=== PATIENT | male | born 1950 | race Caucasian/White ===

== ENCOUNTER → 2017-11-25 | Outpatient (CLI) | payer OTHER, MEDICARE ==
[~2017-11-25] MED LIST: ASPIR 8181 M1 PO; CENTRUM SILVER1 EAC2 PO; CHERATUSSIN AC10 ML PO; COLACE100 MG PO; EYEDROP; FISH OIL 1,0001 EAC5 PO; FISH OIL 1,001000 M2 PO; FLEXERIL PO; HYDROCODON-ACE1 EAC7 PO; HYDROCODON-ACE1 EACH PO; IBUPROFEN 600600 M1 PO; LEVAQUIN 500 M500 M2 PO; LEVAQUIN 500 M500 MG PO; LISINOPRIL10 MG PO; LODINE XL400 MG PO; LODINE XL500 MG PO; MAXZIDE-25 MG1 EACH PO; MINOCIN100 MG PO; MIRALAX17 GM PO; MULTIVITAMINS1 EAC7 PO; NEURONTIN 300300 M1 PO; NORCO 10-325 T1 EACH PO; NORCO 5-325 TA1 EACH PO; OCUVITE LUTEIN1 EAC2 PO; PREDNISONE50 MG PO; PREVACID15 MG; PROTONIX40 M2 PO; VENTOLIN HFA 1818 GM INH; VITCB500GO; ZYRTEC10 M4 PO; [UNRECOGNIZED DRUG - REMARK]
--- NOTE | 2017-11-26 08:24 | PAINCON ---
[facility] [address] [place] [address] PAIN MANAGEMENT CONSULTATION Name: GAGESUZY [facility] [id number] Admission: 11/25/17 Attend Phys: Francheska Diggs Discharge: Date of : 50 Report #: [id number] THIS REPORT FOR: //name// CC: Cesar Browning DATE OF SERVICE: 11/25/2017 HISTORY OF PRESENT ILLNESS: The patient is a pleasant 67-year-old gentleman, last seen in the pain clinic on 09/02/2017. He has ongoing cervical radiculopathy, axial back pain, requires complex medication management. He takes hydrocodone 10/325 typically less than 1 a day, 100 tablets, last September, lasted him nearly 3 months. He stopped gabapentin due to lack of efficacy. He does take Flexeril 10 mg prescribed t.i.d., takes it b.i.d. We had spoken at last visit about the BEERS recommendation not to use Flexeril long-term in patients over 60. However, the patient has done well with his current medication. I see no reason to change therapy at this point. We can rotate to another muscle relaxant if needed. Returns to pain clinic today noting pain is primarily in the upper neck, right side, base of the occiput. He rates the pain as 7 on a VAS. At this point, no significant radicular symptoms noted. Cervical range of motion in flexion and extension is preserved. PHYSICAL EXAMINATION: GENERAL: Shows an obese 67-year-old gentleman, 5 feet 9 inches, 313 pounds, BMI is 46.1 kilograms per meter squared. VITAL SIGNS: Blood pressure is elevated at 173/96, pulse 83, respirations 16. MUSCULOSKELETAL: As noted. Cervical range of motion is good. Point tenderness inferior aspect of the right occiput, though cervical range of motion appears adequate. Upper extremity strength is preserved. ASSESSMENT: Myofascial pain, component of cervical spondylosis, prior history of cervical radiculopathy in a gentleman with prior history of axial back pain requiring complex medication management. RECOMMENDATION: Again, discussion with the patient today about therapeutic options, we have elected to renew hydrocodone 10/325, dispense 100 tablets; directions, one tablet 3-4 times a day, though this typically will last for the patient up to 3 months. We have elected to continue Flexeril 10 mg b.i.d., [place]i.[place] [address] PAIN MANAGEMENT CONSULTATION Name: SUZY ALMONTE Room: [facility]#: [id number] Admission: 11/25/17 Attend Phys: Francheska Diggs Discharge: Date of : 50 Report #: [id number] liberty of writing prescription for same. Follow up likely at about 3 months or earlier if needed for interventional therapy. <ELECTRONICALLY SIGNED> By: Miquel Browning DO 11/26/17 0824 1419 0020Miquel Browning DO /nt
== END ==
LOC: M.PC 01:29
DX: M54.12 Radiculopathy, cervical region (principal); M54.9 Dorsalgia, unspecified; M79.1 Myalgia; Z79.899 Other long term (current) drug therapy

== ENCOUNTER → 2018-03-10 | Outpatient (CLI) | payer OTHER, MEDICARE ==
--- NOTE | 2018-03-15 06:53 | PAINCON ---
[facility] [address] [place] [address] PAIN MANAGEMENT CONSULTATION Name: SUZY ALMONTE [facility] [id number] Admission: 03/10/18 Attend Phys: Francheska Diggs Discharge: Date of : 50 Report #: [id number] THIS REPORT FOR: //name// CC: Cesar Browning The patient is a 68-year-old gentleman being treated for cervical radiculopathy, axial back pain requiring complex medication management. Last seen in pain clinic 11/25/2017. He used hydrocodone infrequently, prescription for hydrocodone 10/325, limit 100 tablets was generated at that time. He is just now getting near the end of that prescription (100 tablets in 3.5 months). Returns to pain clinic today, noting primarily pain is low back pain, exacerbated with physical activity including lawn mowing. When asked if it impacts his function, he notes that "he simply does not let pain stop him." He does note that pain is in the low back, radiates up to the mid back with activity. He notes if he sits for only a few minutes, it does enable him to "recycle." By this he means that it does help relieve pain and very quickly he can go back to his "baseline." He does take coanalgesics including Flexeril 10 mg up to b.i.d. for spasm and etodolac 500 mg b.i.d. for prostaglandin mediated pain and inflammation. Last visit, we had spent a good deal of time reviewing the fact that the BEERS recommendations are that cyclobenzaprine not be used chronically for muscle spasm, particularly in the elderly. Given, however, that the patient has taken this agent (cyclobenzaprine 10 mg) b.i.d. for spasm for quite some time, he has done very well with it. I felt it was reasonable to simply review this issue with the patient and continue him on the agent until such time he may develop any issues with daytime somnolence or dry mouth or urinary retention. Likewise, we did discuss in broad terms the generic risk of nonsteroidal anti-inflammatory agents, chronic use and increased cardiac risk (etodolac 500 mg b.i.d.). We reviewed the fact that opiate medications are being used to provide analgesia adequate to support activities of daily living, not attempting to achieve a specific pain score on the 0-10 Visual Analog Scale. The current opiate medications are providing sufficient analgesia to allow the patient to participate in activities of daily living. The patient is not exhibiting any aberrant behavior suggestive of drug diversion. The patient is not having any adverse reactions to medications. The patient is not suffering from daytime somnolence or mental acuity changes. The patient is managing opiate-induced constipation with appropriate vcrq-gbi-xycmuis agents and dietary considerations. The patient was counseled on concern for caution with operating a motor vehicle while using opiate medications. A physical exam was performed and the patient's functional status was evaluated. All patients with back pain were advised against the bed rest greater than 4 days and were advised to return to normal activities. Pain score assessment was [facility] [address] [place] [address] PAIN MANAGEMENT CONSULTATION Name: SUZY ALMONTE [facility] [id number] Admission: 03/10/18 Attend Phys: Francheska Diggs Discharge: Date of : 50 Report #: [id number] noted and the treatment plan was reviewed with the patient. All current medications, both prescribed and OTC were reviewed and reconciled on the electronic medical record. Tobacco screening was accomplished and smoking cessation was advised when indicated. BMI was noted and diet/exercise modification was recommended for all patients following outside normal parameters. I reviewed with the patient today their responsibilities to safeguard prescription medications, reviewed their responsibility to utilize medications only as prescribed by the physician. They are to seek and receive pain medications only from 1 physician group ( [facility]). They are to use 1 pharmacy and keep the clinic informed if they change pharmacies. Their responsibilities include making followup visits in a timely fashion and to avoid abrupt discontinuation of medication usage. Their responsibilities further include bringing their medications (bottles from the pharmacy with residual pills) to the visit for possible confirmation of pill counts and the patient understands it is their responsibility to submit to random drug screens to ensure both that the medications prescribed are present, and that no other controlled substances are present. All prescriptions provided today were generated electronically. Physical exam otherwise shows a pleasant 68-year-old gentleman, BMI is elevated at 45.2 kilograms per meter squared. Blood pressure is little bit elevated as well at 169/91, pulse is 78, respirations 18. Cranial nerves 2-12 are grossly intact. Pupils are equal and reactive to light and accommodation. Extraocular muscles are intact. Lower extremity strength is preserved. Rises from chair using armrest, has a little tenderness across the low back, though no discrete trigger points are noted. Gait is tandem. Lower extremity strength is preserved. Straight leg raise is negative. Medication list was reconciled today. Does take a little Prevacid and has Ventolin p.r.n. inhaler. Otherwise 12-point review of systems is noncontributory and he enjoys reasonably good health. Today, I did review an opiate consent to treat contract with the patient. While he does not take an opiate daily, he does take a schedule 2 narcotic with some frequency. Again, I did renew hydrocodone 10/ prescription with the patient today, limit 100 tablets. I did renew his cyclobenzaprine and etodolac both 30 days with 2 refills. Follow up simply on an as needed basis. Discharged in good and stable condition. We did spend greater than 25 minutes today reviewing multiple issues including the opiate consent to treat contract and the patient's responsibilities and rights, [place] [address] PAIN MANAGEMENT CONSULTATION Name: SUZY ALMONTE Room: [facility]#: [id number] Admission: 03/10/18 Attend Phys: Francheska Diggs Discharge: Date of : 50 Report #: [id number] cyclobenzaprine and NSAID type agents. We did discuss opiate risks with hydrocodone use. Discharged in good and stable condition. <ELECTRONICALLY SIGNED> By: Miquel Browning DO 03/15/18 0653 [id number] 0112Miquel Browning DO /nt
== END ==
LOC: M.PC 01:41
DX: M54.12 Radiculopathy, cervical region (principal); G89.29 Other chronic pain; Z79.899 Other long term (current) drug therapy

== ENCOUNTER → 2018-04-19 | Outpatient (CLI) | payer OTHER, MEDICARE ==
--- NOTE | 2018-04-19 17:01 | 2DMMODE ---
[place] [address] 2 D/M-MODE ECHOCARDIOGRAM Name: GAGESUZY MEDINA Room: [facility].#: [id number] Admission: 04/19/18 Attend Phys: Miquel Hoff Discharge: Date of : 50 Date of Service: 04/19/18 1701 Report #: [id number] THIS REPORT FOR: //name// APPROVED REPORT Study performed: 04/19/2018 15:28:07 EXAM: Comprehensive 2D, Doppler, and color-flow Echocardiogram Patient Location: Out-Patient Status: routine BSA: 2.48 HR: 90 bpm Other Information Study Quality: Fair Indications Cardiomegaly 2D Dimensions LVEF(%): 63.96 (>50%) IVSd: 11.14 (7-11mm) LVOT Diam: 22.09 (18-24mm) LVDd: 60.19 mm PWd: 11.70 (7-11mm) Ascending Ao: 30.86 (22-36mm) LVDs: 38.86 (25-40mm) Aortic Root: 28.63 mm Diaz's LVEF: 63.96 % Volumes Left Atrial Volume (Systole) LA ESV Index: 15.20 mL/m2 Aortic Valve AoV Peak Will.: 0.96 m/s AO Peak Gr.: 3.68 mmHg LVOT Max P.98 mmHg AO Mean Gr.: 2.14 mmHg LVOT Mean P.92 mmHg LVOT Max V: 1.00 m/s AO V2 VTI: 16.28 cm LVOT Mean V: 0.64 m/s YVONNE (VTI): 3.94 cm2 LVOT V1 VTI: 16.71 cm Mitral Valve E/A Ratio: 0.84 MV Decel. Time: 296.29 [place] [address] 2 D/M-MODE ECHOCARDIOGRAM Name: SUZY ALMONTE Room: [facility]#: [id number] Admission: 04/19/18 Attend Phys: Miquel Hoff Discharge: Date of : 50 Date of Service: 04/19/18 1701 Report #: [id number] MV E Max Will.: 0.46 m/s MV PHT: 85.92 ms MVA (PHT): 2.56 cm2 TDI E/Lateral E': 5.11 E/Medial E': 7.67 Medial E' Will.: 0.06 m/s Lateral E' Will.: 0.09 m/s Pulmonary Valve PV Peak Will.: 0.98 m/s PV Peak Gr.: 3.87 mmHg Left Ventricle The left ventricle is normal size. There is normal LV segmental wall motion. Mild concentric left ventricular hypertrophy. Left ventricular systolic function is normal. The left ventricular ejection fraction is within the normal range. LVEF is 50-55%. Grade I - abnormal relaxation pattern. Right Ventricle The right ventricle is normal size. The right ventricular systolic function is normal. Atria The left atrium size is normal. The right atrium size is normal. Aortic Valve Mild aortic valve sclerosis. Mild aortic regurgitation. There is no aortic valvular stenosis. Mitral Valve The mitral valve is normal in structure. There is no mitral valve regurgitation noted. No evidence of mitral valve stenosis. Tricuspid Valve The tricuspid valve is normal in structure. There is no tricuspid valve regurgitation noted. Pulmonic Valve The pulmonary valve is normal in structure. There is no pulmonic valvular regurgitation. Great Vessels The aortic root is normal in size. IVC is normal in size and collapses with >50% [place] [address] 2 D/M-MODE ECHOCARDIOGRAM Name: SUZY ALMONTE [facility] [id number] Admission: 04/19/18 Attend Phys: Miquel Hoff Discharge: Date of : 50 Date of Service: 04/19/18 1701 Report #: [id number] Pericardium There is no pericardial effusion. <Conclusion> The left ventricle is normal size. Mild concentric left ventricular hypertrophy. Left ventricular systolic function is normal. The left ventricular ejection fraction is within the normal range. LVEF is 50-55%. Grade I - abnormal relaxation pattern. The left atrium size is normal. Mild aortic valve sclerosis. Mild aortic regurgitation. There is no aortic valvular stenosis. The mitral valve is normal in structure. The tricuspid valve is normal in structure. IVC is normal in size and collapses with >50% inspiration There is no pericardial effusion. There is normal LV segmental wall motion. <ELECTRONICALLY SIGNED> By: Edin Vilchis MD, [facility] 04/19/181700 00 00 Edin Vilchis MD, FACC /INF
== END ==
LOC: M.CRD 15:00
DX: I35.1 Nonrheumatic aortic (valve) insufficiency (principal); I51.7 Cardiomegaly

== ENCOUNTER 2018-05-09 19:31 | Inpatient (IN) | payer OTHER, MEDICARE ==
[~2018-05-09] VITALS: Ht 177.8 cm; Wt 145.1 kg
[~2018-05-09 19:31] MED LIST changes: -ASPIR 8181 M1 PO; -CENTRUM SILVER1 EAC2 PO; -COLACE100 MG PO; -EYEDROP; -FISH OIL 1,001000 M2 PO; -LISINOPRIL10 MG PO; -MAXZIDE-25 MG1 EACH PO; -MINOCIN100 MG PO; -MIRALAX17 GM PO; -OCUVITE LUTEIN1 EAC2 PO; -ZYRTEC10 M4 PO
[2018-05-09 19:37] VITALS: BP 162/92
[2018-05-09] MEDS ORDERED: MAXZIDE-25 MG1 EACH PO (19:43)
[2018-05-09] MEDS ORDERED: EYEDROP (19:43)
[2018-05-09] MEDS ORDERED: CENTRUM SILVER1 EAC2 PO (19:43)
[2018-05-09] MEDS ORDERED: ZYRTEC10 M4 PO (19:44)
[2018-05-09] MEDS ORDERED: ASPIR 8181 M1 PO (19:44)
[2018-05-09] MEDS ORDERED: FISH OIL 1,001000 M2 PO (19:44)
[2018-05-09 20:19] LABS: HEMOGLOBIN 15.8 gm/dL (14.0-18.0); MCHC 33.3 g/dL (28.0-37.0); MPV 7.8 fl. (7.2-11.1); WBC 10.6 thou/uL (4.0-11.0)
[2018-05-09 20:21] LABS: ABSOLUTE LYMPHOCYTES 1.4 thou/uL (0.8-5.3); ABSOLUTE MONOCYTES 0.7 thou/uL (0.0-1.2); ABSOLUTE NEUTROPHILS 8.5 thou/uL (1.6-8.1); BASOPHILS 0.4 %; EOSINOPHILS 0.2 %; HEMATOCRIT 47.5 % (42.0-52.0); LYMPHOCYTES 12.8 %; MCH 32.6 pg (26.0-34.0); MCV 97.7 fL (80.0-100.0); NUCLEATED RBCS 0 /100WBC; PLATELET COUNT* 180 thou/uL (150-400); POLYS 79.6 %; RBC 4.86 mil/uL (4.50-6.00); RDW-CV 13.7 % (10.5-14.5)
[2018-05-09 20:24] LABS: CALCIUM 9.2 mg/dL (8.5-10.1); CREATININE 1.2 mg/dL (0.6-1.3); POTASSIUM 4.8 mmol/L (3.5-5.1)
[2018-05-09 20:25] LABS: PROTIME 10.1 Seconds (9.20-11.50)
[2018-05-09 20:34] LABS: ALBUMIN 3.6 g/dL (3.4-5.0); TOTAL BILIRUBIN 0.5 mg/dL (<0.1-1.0); TOTAL PROTEIN 7.7 g/dL (6.4-8.2)
[2018-05-09 23:29] VITALS: BP 140/75
[2018-05-10] MEDS ORDERED: OCUVITE LUTEIN1 EAC2 PO (00:29)
[2018-05-10] MEDS ORDERED: NORCO 10-325 T1 EACH PO (00:30)
[2018-05-10] MEDS ORDERED: VENTOLIN HFA 1818 GM INH (00:31)
[2018-05-10 04:00] VITALS: BP 114/74
[2018-05-10 08:03] VITALS: BP 137/77
[2018-05-10] MEDS ORDERED: COLACE100 MG PO (08:13)
[2018-05-10 11:59] VITALS: BP 168/69
[2018-05-10 16:00] VITALS: BP 161/73
[2018-05-10 20:00] VITALS: BP 145/69
[2018-05-11] VITALS: BP 114/69
[2018-05-11 04:00] VITALS: BP 140/79
[2018-05-11 08:00] VITALS: BP 164/76
[2018-05-11 20:00] VITALS: BP 131/67
[2018-05-12] VITALS: BP 167/78
[2018-05-12 04:00] VITALS: BP 142/71
[2018-05-12 08:05] VITALS: BP 146/81
--- NOTE | 2018-05-12 12:24 | CON ---
[address] [address] CONSULTATION Name: GAGESUZY Room: [place] [address] ADM IN M.R.#: [id number] Admission: 05/09/18 Attend Phys: Umang Naik MD Discharge: Date of : 50 Report #: [id number] THIS REPORT FOR: //name// CC: Umang Hoff DATE OF SERVICE: 05/11/2018 ATTENDING PHYSICIAN: Umang Naik M.D. REASON FOR EVALUATION: Right lower extremity inflammatory eruption, likely cellulitis with a hemolytic component. HISTORY OF PRESENT ILLNESS: Chart examined, patient examined. This is a 68-year-old with a history of hypertension, apparently he has had lower extremities edema, suspect chronic venous stasis insufficiency, who without apparent injury developed inflammatory eruption involving his right lower extremity. He had extended pain into the groin area noted, made it difficult to ambulate due to the severity of the pain. He was not generally feeling ill. Denies any fevers. No pulmonary or gastrointestinal related complaints. He notes he has had previous history of cellulitis in left lower extremity. He is on his feet quite a bit at work. He does have compression stockings, although he wears them not consistently. He was empirically started on vancomycin. Overall, he is somewhat better. ALLERGIES: LISTED TO PENICILLINS, HE SAYS. CURRENT MEDICATIONS: Include aspirin, loratadine, fish oil, triamterene, multivitamin, pantoprazole, docusate sodium, etodolac, levofloxacin, ipratropium/albuterol inhaler, vancomycin, hydrocodone. PAST MEDICAL HISTORY: As noted above, he has had previous knee surgery on the left, spinal stenosis, hypertension, and history of osteoarthritis. SOCIAL HISTORY: Former smoker, extended 40 pack years. FAMILY HISTORY: Noncontributory. REVIEW OF SYSTEMS: As above. PHYSICAL EXAMINATION: GENERAL: He is pleasant, alert, and cooperative. He is in mild distress. He is obese. VITAL SIGNS: Temperature 98.5, pulse 93, respirations 18, blood pressure 164/76. SKIN: Warm, dry[place] [address] CONSULTATION Name: SUZY ALMONTE Room: [address] IN [facility]#: [id number] Admission: 05/09/18 Attend Phys: Umang Naik MD Discharge: Date of : 50 Report #: [id number] HEENT: Unremarkable. NECK: Supple. LUNGS: Somewhat diminished, otherwise clear breath sounds. HEART: Regular. I do not appreciate a murmur. ABDOMEN: Obese, soft, nontender. There are no peritoneal signs. EXTREMITIES: Right lower extremity, he has an hemorrhagic appearance to the leg. It is fairly significantly swollen, there is no pitting. It is mildly tender to palpation, especially posteriorly. There are no bullous lesions, no ulcerations. GENITOURINARY: Deferred. RECTAL: Deferred. LABORATORY DATA: Blood cultures sterile thus far. Lactic acid 1.6, is down from 2.2. Venous Doppler was unremarkable. CBC: White count of 10.6, H and H 15.8 and 47.5, platelets of 180. Electrolytes: Sodium 136, potassium 4.8, chloride 100, bicarbonate is 33, BUN and creatinine 21 and 1.2, glucose of 116. LFTs unremarkable. Albumin 3.6. Total protein 7.7, estimated GFR of 60. PT of 10.1, INR 1.0. ASSESSMENT: Right lower extremity inflammatory eruption, suspect multifactorial in terms of recently complicating skin and soft tissue infection with cellulitis, suspect gram-positive, perhaps streptococcus. We will start on therapy, for penicillin allergy, add compression and continue elevation, suspect he will need only additional 24 hours of parenteral therapy. <ELECTRONICALLY SIGNED> By: Ruel Laughlin MD 05/12/18 1224 1117 1712Jobarbi Laughlin MD /nt
[2018-05-12 13:38] VITALS: BP 146/81
[2018-05-12] MEDS ORDERED: MIRALAX17 GM PO (14:14)
[2018-05-12] MEDS ORDERED: MINOCIN100 MG PO (14:14)
[2018-07-29] MEDS ORDERED: FLEXERIL PO (10:29)
[2018-07-29] MEDS ORDERED: LODINE XL500 MG PO ×2 (10:29→14:11)
[2018-07-29] MEDS ORDERED: LISINOPRIL10 MG PO (13:55)
[2018-07-29] MEDS ORDERED: NORCO 10-325 T1 EACH PO ×2 (14:11→14:33)
[2018-09-14] MEDS ORDERED: NORCO 10-325 T1 EACH PO (15:21)
== END 2018-05-12 14:40 | disposition home or self-care (01) | DRG 603 ==
LOC: M.ERS 19:31 → M.TBA-ER 21:34 → M.2W 21:34
PROVIDERS: Emergency Medicine; ADMIT Internal Medicine
DX: L03.115 Cellulitis of right lower limb (principal); J96.10 Chronic respiratory failure, unspecified whether with hypoxia or hypercapnia; Z68.42 Body mass index [BMI] 45.0-49.9, adult; M19.90 Unspecified osteoarthritis, unspecified site; E66.01 Morbid (severe) obesity due to excess calories; M48.00 Spinal stenosis, site unspecified; I10 Essential (primary) hypertension; K21.9 Gastro-esophageal reflux disease without esophagitis; Z88.0 Allergy status to penicillin; Z91.040 Latex allergy status; Z87.891 Personal history of nicotine dependence; Z79.2 Long term (current) use of antibiotics; Z79.82 Long term (current) use of aspirin

== ENCOUNTER → 2018-07-29 | Outpatient (CLI) | payer OTHER, MEDICARE ==
[~2018-07-29] MED LIST changes: +ASPIR 8181 M1 PO; +CENTRUM SILVER1 EAC2 PO; +COLACE100 MG PO; +EYEDROP; +FISH OIL 1,001000 M2 PO; +LISINOPRIL10 MG PO; +MAXZIDE-25 MG1 EACH PO; +MINOCIN100 MG PO; +MIRALAX17 GM PO; +OCUVITE LUTEIN1 EAC2 PO; +ZYRTEC10 M4 PO
--- NOTE | 2018-08-16 10:00 | PAINCON ---
[address] [address] PAIN MANAGEMENT CONSULTATION Name: SUZY ALMONTE [facility]: [facility]#: [id number] Admission: 07/29/18 Attend Phys: Binta Bennett MD Discharge: Date of : 50 Report #: [id number] THIS REPORT FOR: //name// CC: Cesar Hoff DO DATE OF SERVICE: 07/29/2018 PSYCHIATRIC CONSULTATION NOTE CHIEF COMPLAINT: Neck pain, low back pain. FOLLOWUP HISTORY: The patient is a 68-year-old gentleman who has been followed in the pain clinic by Dr. Miquel Browning. This is my first visit with the patient. He returns today indicating that he is having some pain and discomfort in his neck as well as in his low back area. Notes that the pain in the low back area radiates down into his hips. Feels that the neck pain is problematic too, but not as bad as it had been. Rates his pain as a 0/10 today. Does note exacerbation of the discomfort with activity with changes in the temperature when it becomes more cold, standing can be problematic. He feels that his medications as well as with rest are beneficial. He continues to find Etodolac helpful. He is not having any problem with this nonsteroidal anti-inflammatory medication on his stomach. Feels that hydrocodone 10/325 mg can be helpful as well. The patient has been cutting them in half. Overall, he feels that his pain with his current medical regimen is about 50% better than it had been without it. The patient has been placed upon this complex medical regimen secondary to his chronic pain by Dr. Browning. He usually takes a limited number of these pills and limited number of hydrocodone tablets. He notes that the use of 100 tablets had lasted him about 3-1/2 months. The patient states that he tries to remain active. Continues to do activities of daily living in spite of his discomfort. ALLERGIES: PENICILLIN, ADHESIVE, MUSHROOMS. MEDICATIONS: Albuterol 2 puffs p.r.n., aspirin 81 mg, Zyrtec 10 mg, fish oil 1000 mg, Colace 100 mg, constipation, Etodolac 500 mg b.i.d., hydrocodone 10/325 mg one p.o. p.r.n. pain q.4-6 hours, Prevacid 15 mg, lisinopril 10 mg, Centrum Silver, MiraLax, stool softener, Maxzide 25 mg to remove excess fluid. PAST MEDICAL HISTORY: Osteoarthritis involving the knees, spinal stenosis, hypertension. PAST SURGICAL HISTORY: Surgery x 2, 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 REVIEW OF SYSTEMS: Generally good health as per HPI. LABORATORY DATA: No new laboratory values are available at the time of our interview. PAIN CLINIC ASSESSMENT/PQRS: 1. The patient does have osteoarthritic changes involving his left knee. He has not been treated for rheumatoid arthritis. 2. Height 5 feet 9 inches, weight approximately 300 pounds, BMI is 46. 3. Vital Signs: Blood pressure 143/75, heart rate is 84, respiratory rate 16, room air saturation 94%, temperature 98.3. 4. Pain score 0/10. 5. Fall risk. The patient has not fallen in the last 3 months. 6. Blood thinner. The patient is not on a blood thinning medication. 7. Hypertension. The patient is not being treated for hypertension. 8. Opioid greater than 6 weeks. The patient is receiving opioid medications through 1 source the pain clinic. 9. Risk assessment tool, low for use of opioid medications. 10. Functional assessment tool. 11. Recreational drug use. The patient denies use of recreational drug use. 12. Tobacco: The patient stopped about 3 years ago. Smoked 1 pack a day for 50 years. 11. 13. 13. Alcohol occasionally drinks a beer. PHYSICAL EXAMINATION: GENERAL: The patient is a well-developed, well-nourished white male, slightly obese, appears his stated age. He is alert and oriented x 3. Affect is appropriate. Speech is fluent. HEENT: Normocephalic, atraumatic. Extraocular eye muscles intact. The patient does have some redness in the left eye. States that he has had cataract surgery recently. NECK: Without adenopathy or JVD. Upper extremity muscle strength is judged to be 5/5 for the major muscle groups in the upper extremity. Has some pain and discomfort in his neck. He is able to move his neck through good range of motion without significant problems are without cervical radicular discomfort at this point. MUSCULOSKELETAL: Without significant scoliosis, kyphosis or lordosis. The patient has pain and discomfort in lower portion of his back with pain is radiating down into his hips bilaterally. LUNGS: Clear to auscultation. ABDOMEN: Protuberant. Bowel sounds present. Lower extremity muscle strength is judged to be 5-/5 for the major muscle groups in the lower extremity. He has some left and right paraspinus muscle tenderness in the L4-L5 area. IMPRESSION: [facility] [address] [place] [address] PAIN MANAGEMENT CONSULTATION Name: GAGESUZY Room: [facility]#: [id number] Admission: 07/29/18 Attend Phys: Binta Bennett MD Discharge: Date of : 50 Report #: [id number] 1. History of cervical radiculopathy, stable at this juncture. Axial back pain requiring complex medical management. 2. Osteoarthritis involving the knees. 3. Spinal stenosis. 4. Hypertension. RECOMMENDATIONS: We discussed treatment options with the patient. At this juncture, we will continue with his current medical regimen. He feels that use of hydrocodone remains helpful. A script for 100 tablets has been written. He found that was sufficient for about 3 months. He will follow up in the pain clinic as needed in the future. We would like to thank you for letting us participate in his care. We hope he continues to improve. <ELECTRONICALLY SIGNED> By: Binta Bennett MD 08/16/18 [id number] [id number]. Tom Bennett MD /PMT
== END ==
LOC: M.PC 04:57
DX: M54.12 Radiculopathy, cervical region (principal); M17.0 Bilateral primary osteoarthritis of knee; M48.02 Spinal stenosis, cervical region; I10 Essential (primary) hypertension; Z79.899 Other long term (current) drug therapy

== ENCOUNTER → 2019-03-01 | Outpatient (CLI) | payer OTHER, MEDICARE ==
--- NOTE | ~2019-03-01 | PAINCON ---
[address] [address] PAIN MANAGEMENT CONSULTATION Name: SUZY ALMONTE Room: [facility] MASSIMO QuinonezPippa#: [id number] Admission: 03/01/19 Attend Phys: Binta Bennett MD Discharge: Date of : 50 Report #: [id number] THIS REPORT FOR: //name// CC: Cesar Wang DATE OF SERVICE: 03/01/2019 CHIEF COMPLAINT: Low back pain and some numbness in my left arm. HISTORY: The patient is a 69-year-old gentleman who has been followed in the pain clinic because of chronic pain involving his low back and down into his hips. He also has some neck problems. He rates his pain today as a 1-2 for the lower back. Has noted some increased pain in his left shoulder. Notes that when he is driving if he extends his arm. There is some numbness and tingling associated with that. He feels that it is somewhat problematic. It goes away once he stops that activity. He sometimes rests his arm on a pillow that decreases his discomfort as well. He has been treated over the years with a complex medical management using opioid medications to help control this pain. States that when he was younger, he did play football. He has left knee pain. Has had a knee replacement. Feels that the pain in his low back is helped with medication. The pain and numbness in his left shoulder is problematic. He has taken Medrol Dosepak in the past, but does not feel like he would like to go that option at this juncture. His pain becomes more problematic. He will return to the pain clinic with consideration of a cervical epidural steroid injection. ALLERGIES: PENICILLIN, ADHESIVE TAPE, MUSHROOMS. MEDICATIONS: Albuterol 2 puffs, aspirin 81 mg, Zyrtec 10 mg, fish oil 1000 mg, Colace 100 mg, etodolac 500 mg b.i.d., hydrocodone 10/325 one p.o. every 4-6 hours p.r.n., Prevacid 15 mg, lisinopril 10 mg, Centrum Silver, MiraLax, stool softener, Maxzide 25 mg for removal of excess fluid. PAIN CLINIC ASSESSMENT/PQRS: 1. The patient has some arthritic changes involving his left knee. This has been replaced. He is not being treated for rheumatoid arthritis. 2. Height 5 feet 9 inches, weight 320 pounds, BMI is 47.7. 3. Blood pressure 156/76, heart rate 91, respiratory rate 16, room air saturation 92%, temperature 98.3. 4. Pain intensity 0-2 depending on his level of activity. Pretty much 0 when he is not doing anything. 5. Fall history. The patient has not fallen in the last 3 months. 6. Blood thinner. The patient is not on a blood thinning medication. 7. Hypertension. The patient is [place] [address] PAIN MANAGEMENT CONSULTATION Name: SUZY ALMONTE Room: [facility]#: [id number] Admission: 03/01/19 Attend Phys: Binta Bennett MD Discharge: Date of : 50 Report #: [id number] 8. Opioids greater than 6 weeks. The [facility]. 9. Risk assessment tool, no for opioid use. 10. Functional assessment tool. 11. Recreational drug use. The patient denies use of recreational drugs. 12. Tobacco: The patient stopped about 3 years ago. Smoked 1 pack of cigarettes per day, has smoked for 50 years. 13. Alcohol. The patient occasionally drinks a beer. PHYSICAL EXAMINATION: GENERAL: The patient is a well-developed, well-nourished, somewhat obese white male, appears stated age. He is alert and oriented x 3. Affect is appropriate. Speech is fluent. HEENT: Normocephalic, atraumatic. Extraocular eye muscles intact. Sclerae nonicteric. Mucous membranes moist. NECK: Without adenopathy or JVD. The patient does have some pain and discomfort, which radiates down into his left arm. Notes that with certain activities such as extending his arm forward when he is driving and other activities where he extends his arm, he notes some numbness and tingling down from his neck, shoulder, arm and to his forearm down into his fingers. At this juncture, he feels that is a bit of discomfort. MUSCULOSKELETAL: The patient without significant scoliosis, kyphosis or lordosis. LUNGS: Clear to auscultation. ABDOMEN: Protuberant. Bowel sounds present. The patient has some pain and discomfort in the low back area in the L4-L5 dermatomal distribution. ASSESSMENT AND PLAN: 1. History of cervical radiculopathy with axial back pain requiring complex medical management. 2. Osteoarthritis involving the knees. 3. Spinal stenosis. 4. Hypertension. RECOMMENDATIONS: We discussed treatment options with the patient. At this juncture, he feels that his arm continues to be problematic on occasion. At this point, he declined the use of a Medrol Dosepak. He states he has used this in the past. If his pain continues to be problematic, he will return to the pain clinic at which time we would then consider a cervical epidural steroid injection. He will continue with his medications. A script for given him for medications, etodolac 1 p.o. b.i.d., hydrocodone 10/325 one p.o. q. 4 hours, [place] [address] PAIN MANAGEMENT CONSULTATION Name: SUZY ALMONTE Room: [facility]#: [id number] Admission: 03/01/19 Attend Phys: Binta Bennett MD Discharge: Date of : 50 Report #: [id number] total of 75 tablets have been administered. We would like to thank you for letting us participate in his care. We hope he continues to improve. By: [id number]. Tom Bennett MD /nt
== END ==
LOC: M.PC 04:53
DX: G89.29 Other chronic pain (principal); M54.12 Radiculopathy, cervical region; I10 Essential (primary) hypertension; Z88.0 Allergy status to penicillin; Z91.09 Other allergy status, other than to drugs and biological substances; Z91.018 Allergy to other foods; Z79.899 Other long term (current) drug therapy; Z96.652 Presence of left artificial knee joint; Z87.891 Personal history of nicotine dependence; Z79.891 Long term (current) use of opiate analgesic

== ENCOUNTER → 2019-05-17 | Outpatient (CLI) | payer OTHER, MEDICARE ==
--- NOTE | ~2019-05-17 | PAINCON ---
[address] [address] PAIN MANAGEMENT CONSULTATION Name: SUZY ALMONTE Room: [facility] MASSIMO QuinonezPippa#: [id number] Admission: 05/17/19 Attend Phys: Binta Bennett MD Discharge: Date of : 50 Report #: [id number] THIS REPORT FOR: //name// CC: Cesar Bennett DATE OF SERVICE: 05/17/2019 CHIEF COMPLAINT: "My neck pain has gotten worse and I would like to have an injection. HISTORY: The patient is a 69-year-old gentleman who has been followed in the pain clinic because of chronic pain. He has pain involving his low back and also has pain in the neck area. He states that he is having more pain involving his neck. Extension of his left arm and other activities of daily living with his left arm are more problematic. Notes some increased discomfort in the left arm with numbness and tingling down into his fingers. He has had cervical epidural steroid injections in the distant past. They were beneficial. He has returned today with the hope of undergoing another cervical epidural steroid injection. He is also having pain in his low back. He has had pain, which becomes quite overbearing. Notes that when he went to [facility] or when he went to [place] [facility]. He was unable to walk after about 3 days. He then got an electric cart which he rolled around, which made things significantly better. He notes that the pain wakes him up in the morning at 4:00 a.m. He notes the pain is worse when he is driving. Again, he would like to proceed today with a cervical epidural steroid injection to help decrease the pain, which he has been experiencing. Continues to find his opioid medications are beneficial and would like to have them renewed today as well. ALLERGIES: PENICILLIN, ADHESIVES, MUSHROOMS. CURRENT MEDICATIONS: Albuterol 2 puffs p.r.n., aspirin 81 mg, Zyrtec 10 mg, fish oil 1000 mg, Colace 100 mg, etodolac 500 mg b.i.d., hydrocodone 10/325 one p.o. 4-6 hours, Prevacid 15 mg, lisinopril 10 mg, Centrum Silver, MiraLax, Maxzide 25 mg for removal of excess fluid. PAIN CLINIC ASSESSMENT/PQRS: 1. The patient has some arthritic changes involving his left knee. This has been replaced. He is not being treated by Rheumatology. 2. Height 5 feet 10 inches, weight 321 pounds, BMI is 46.2. 3. VITAL SIGNS: Blood pressure 174/78, heart rate 77, respiratory rate 18, room air saturation is 94%, temperature 97.5. 4. Pain intensity 8/10. 5. Fall history: The patient has not fallen in the last 3 [place] [address] PAIN MANAGEMENT CONSULTATION Name: SUZY ALMONTE [id number] Admission: 05/17/19 Attend Phys: Binta Bennett MD Discharge: Date of : 50 Report #: [id number] 6. Blood thinner. The patient is not on a blood thinning medication. 7. Hypertension. The patient has been treated for hypertension. 8. Opioid greater than 6 weeks. The patient [facility]. 9. Risk assessment tool, low for opioid use. 10. Functional assessment tool. 11. Recreational drug use. The patient denies. 12. Tobacco: The patient denies. 13. Alcohol: The patient rarely drinks alcoholic beverages. PHYSICAL EXAMINATION: GENERAL: The patient is a well-developed, well-nourished, somewhat obese white male, appears his stated age. He is alert and oriented x 3. His affect is appropriate. Speech is fluent. HEENT: Normocephalic, atraumatic. Extraocular eye muscles are intact. Sclerae nonicteric. Mucous membranes are moist. NECK: Without adenopathy or JVD. The patient does complain of some pain in the left shoulder area with pain that is radiating down into his left arm with numbness and tingling in the fingers. HEART: Regular rate. LUNGS: Clear to auscultation. ABDOMEN: Protuberant. Bowel sounds present. EXTREMITIES: Upper extremity muscle strength judged to be 5-/5 on the right and 5-/5 on the left. Lower extremity, the patient complains of some low back pain. Has history, which clinically sounds consistent with spinal stenosis. ASSESSMENT AND PLAN: 1. History of cervical radiculopathy. The patient is requesting cervical epidural steroid injection. 2. Axial back pain requiring complex medical management and hand. 3. Spinal stenosis. 4. Hypertension. 5. Osteoarthritis involving the knees. RECOMMENDATION: We discussed treatment options with the patient. Today, we will proceed with a cervical epidural steroid injection. Risks and benefits of the procedure were discussed. They include but are not limited to infection, worsening pain, no improvement in pain, nerve damage, spinal headache and the patient elects to proceed. PROCEDURE NOTE: The patient was taken to the procedure area. He was then assisted in getting on the examination table. A pillow was placed under his shoulders. The patient's neck was sterilely prepped with a Betadine solution. Fluoroscopy using anterior, posterior as well as lateral viewing were implemented. A 25-gauge needle was then used to numb up the skin at this C7-T1 interspace. A 17-gauge Tuohy with loss of resistance technique [place] [address] PAIN MANAGEMENT CONSULTATION Name: SUZY ALMONTE Room: [facility]#: [id number] Admission: 05/17/19 Attend Phys: Binta Bennett MD Discharge: Date of : 50 Report #: [id number] gain access to the epidural space. There was no CSF, heme or paresthesia. A total of 120 mg triamcinolone was injected. The patient tolerated the procedure well. A script for his medications has been renewed. The patient will continue with the hydrocodone 10/325 one p.o. 4-6 hours and etodolac 500 mg 1 p.o. b.i.d. He will call us if he has any concerns. He states that he will return in the future to undergo an epidural steroid injection to help with the spinal stenosis symptoms. We would like to thank you for letting us participate in his care. We hope he continues to improve. By: [id number]. Tom Bennett MD /nt
== END | disposition home or self-care (01) ==
LOC: M.PC 05:14
DX: M54.12 Radiculopathy, cervical region (principal); M54.9 Dorsalgia, unspecified; G89.29 Other chronic pain; I10 Essential (primary) hypertension; M17.0 Bilateral primary osteoarthritis of knee; Z79.891 Long term (current) use of opiate analgesic; Z98.890 Other specified postprocedural states; Z79.899 Other long term (current) drug therapy; Z88.0 Allergy status to penicillin; Z79.82 Long term (current) use of aspirin

== ENCOUNTER → 2019-06-28 | Outpatient (CLI) | payer OTHER, MEDICARE | LOC: M.CT 11:08 | DX: R11.0 Nausea (principal); R19.7 Diarrhea, unspecified; R63.4 Abnormal weight loss; R19.00 Intra-abdominal and pelvic swelling, mass and lump, unspecified site; K76.0 Fatty (change of) liver, not elsewhere classified; Z87.891 Personal history of nicotine dependence ==

== ENCOUNTER → 2019-07-15 | Outpatient (CLI) | payer OTHER, MEDICARE | LOC: M.LAB 04:47 | DX: E87.6 Hypokalemia (principal) ==

== ENCOUNTER → 2019-10-20 | Outpatient (CLI) | payer OTHER, MEDICARE ==
--- NOTE | ~2019-10-20 | PAINCON ---
[address] [address] PAIN MANAGEMENT CONSULTATION Name: SUZY ALMONTE Room: [facility] MASSIMO CooperAshwin.#: [id number] Admission: 10/20/19 Attend Phys: Binta Bennett MD Discharge: Date of : 50 Report #: [id number] THIS REPORT FOR: //name// CC: Cesar Bennett DATE OF SERVICE: 10/20/2019 CHIEF COMPLAINT: Here for medication renewal. HISTORY: The patient is a 69-year-old gentleman who has been followed in the pain clinic because of chronic pain in the cervical as well as the lumbar area. He is experiencing some pain in his neck as well as the low back area today. Finds that his medications of hydrocodone and nonsteroidal anti-inflammatory medications are helpful. He rates his pain as a 2-3/10. Rates his improvement with his overall medication and treatment at 75-80%. Notes that the weather has changed. Has noted increased pain and discomfort with walking. He would like to have his medications renewed. ALLERGIES: PENICILLIN, ADHESIVES, MUSHROOMS. CURRENT MEDICATIONS: Albuterol 2 puffs p.r.n., aspirin 81 mg, Zyrtec 10 mg, fish oil 1000 mg, Colace 100 mg, etodolac 500 mg and his 500 mg b.i.d., hydrocodone 10/325 one q hours p.r.n., Prevacid 15 mg, lisinopril 10 mg, Centrum Silver, MiraLax, Maxzide 25 mg for removal of excess fluid accumulates in the lower extremities. PAIN CLINIC ASSESSMENT AND PQRS: 1. The patient has some arthritic changes involving his left knee. He has had a knee replacement. 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 2. Height 5 feet 9 inches, weight 322 pounds, BMI is 47.6. 3. Blood pressure 151/65, heart rate 91, respiratory rate 16, room air saturation 92%, temperature 98.7. 4. Pain intensity 2-3/10 5. Fall history: The patient has not fallen in the last 3 months. 6. Blood thinner. The patient is not on a blood thinning medication. 7. Hypertension. The patient is being treated for hypertension. 8. Opioids greater than 6 weeks. The patient [facility]. 9. Risk assessment tool was low. 10. Functional assessment tool has been reviewed. 11. Recreational drug use. The patient denies. 12. Tobacco: The patient stopped smoking 40 years. 13. Alcohol: The patient denies. PHYSICAL EXAMINATION: [place] [address] PAIN MANAGEMENT CONSULTATION Name: SUZY ALMONTE CAROL Room: [facility]#: [id number] Admission: 10/20/19 Attend Phys: Binta Bennett MD Discharge: Date of : 50 Report #: [id number] GENERAL: The patient is a well-developed, well-nourished, somewhat obese white male, appears his stated age. He is alert and oriented x 3. His affect is appropriate. Speech is fluent. HEENT: Normocephalic, atraumatic. Extraocular eye muscles intact. Sclerae nonicteric. Mucous membranes are moist. NECK: Without adenopathy or JVD. The patient does have some pain in his neck, but not significantly radiating at this juncture. HEART: Regular rate. LUNGS: Generally clear to auscultation. MUSCULOSKELETAL: Upper extremity muscle strength judged to be 5-/5 for the major muscle groups in the upper extremity. Lower extremity, the patient complains of some low back pain. Does have a history of pain consistent with spinal stenosis. ASSESSMENT AND PLAN: 1. History of cervical radiculopathy, stable at this juncture. 2. Axial back pain requiring complex medical management using opioids. 3. Spinal stenosis. 4. Hypertension. 5. Osteoarthritis involving the knee. He has had left knee replacement. RECOMMENDATIONS: We discussed treatment options with the patient. At this juncture, we will continue with his medications of hydrocodone. He feels that these medications are helpful. He will also continue with his nonsteroidal anti-inflammatory medication. He will monitor his GI tract. We explained to the patient that nonsteroidal anti-inflammatory medications can be problematic in certain patients with stomach problems. He states that he would continue to monitor that and stop the medication should he note some stomach discomfort. He would like to continue with his hydrocodone. A script for this medication has been provided. A script for etodolac has been provided. The patient had used Flexeril in the past. He found that medication was helpful with muscle spasms and pain that he was experiencing. We will renew that and the patient will take 1 pill p.o. t.i.d. as tolerated. He will call us if he has any concerns. He finds that medication cause any sedation. He would only take the medication when sedation will be problematic. We would like to thank you for letting us participate in his care. By: 1439 [id number]. Tom Bennett MD /peng
== END ==
LOC: M.PC 04:47
DX: M54.12 Radiculopathy, cervical region (principal); M48.02 Spinal stenosis, cervical region; I10 Essential (primary) hypertension; M19.90 Unspecified osteoarthritis, unspecified site

== ENCOUNTER → 2020-01-31 | Outpatient (CLI) | payer OTHER, MEDICARE ==
--- NOTE | 2020-02-01 08:25 | PAINCON ---
[address] [address] PAIN MANAGEMENT CONSULTATION Name: GAGESUZY Room: [facility] MASSIMO QuinonezPippa#: [id number] Admission: 01/31/20 Attend Phys: Binta Bennett MD Discharge: Date of : 50 Report #: [id number] THIS REPORT FOR: //name// cc: Cesar Ruiz Bruce R. DO ~ THIS REPORT FOR: //name// CC: Cesar Bennett DATE OF SERVICE: 01/31/2020 CHIEF COMPLAINT: "Pain in my neck, shoulders, and pain down in my left arm." HISTORY: The patient is a 70-year-old gentleman who has been followed in the pain clinic. As you recall, he suffers from cervical radiculopathy. He also has low back pain as well. He returns today requesting renewal of his medications. He has pain in the neck. It involves his shoulder area. He also has some pain in the low back area. His left hand has some pain and discomfort. When he squeezes his hand he notes some improvement in the pain. He is not having pain that radiates down into the forearm it is generally below his wrist. He has not had been told that he has carpal tunnel syndrome. He feels that the nonsteroidal anti-inflammatory medication that he is taking help with that pain in his hand, is helped with the etodolac. He has recently stopped working. He is now in [employer]. He does have a number of tasks that he is working on his house. He is working on a number of rooms. ALLERGIES: PENICILLIN, ADHESIVE TAPE, MUSHROOMS. CURRENT MEDICATIONS: Albuterol 2 puffs, aspirin 81 mg, Zyrtec 10 mg, fish oil 100 mg, Colace 100 mg, etodolac 500 mg b.i.d., hydrocodone 10/325 p.r.n., Prevacid 15 mg, lisinopril 10 mg, Centrum Silver, MiraLax, Maxzide 25 mg for fluid removal in lower extremity. PAIN CLINIC ASSESSMENT AND PQRS: 1. The patient has some arthritic changes in his left knee. He has had a knee replacement. He is not being treated for rheumatoid arthritis. 2. Height 5 feet 9 inches, weight 318 pounds, BMI is 45. 3. Vital Signs: Blood pressure 121/86, heart rate 78, respiratory rate 16, room air saturation is 95%, temperature 98.3. 4. Pain intensity score 3/10. 5. Fall history: The patient has not fallen in the last 3 months. 6. Blood thinner. The patient is not on a blood thinning medication. 7. Hypertension. The patient is being treated for hypertension. 8. Opioids greater than 6 weeks. The patient [facility] [place] [address] PAIN MANAGEMENT CONSULTATION Name: SUZY ALMONTE Room: [facility]#: [id number] Admission: 01/31/20 Attend Phys: Binta Bennett MD Discharge: Date of : 50 Report #: [id number] 9. Risk assessment tool, low for opioid use. 10. Functional assessment tool has been reviewed. 11. Recreational drug use: The patient denies. 12. Tobacco: The patient stopped smoking 40 years ago. 13. Alcohol. The patient denies use of alcoholic beverages. PHYSICAL EXAMINATION: GENERAL: The patient is a well-developed, well-nourished, somewhat obese white male, appears his stated age. He is alert and oriented x 3. His affect is appropriate. Speech is fluent. HEENT: Normocephalic, atraumatic. Extraocular eye muscles intact. Sclerae nonicteric. Mucous membranes are moist. NECK: Without adenopathy or JVD. The patient does have some pain in the shoulder areas. HEART: Regular rate. LUNGS: Generally clear, distant. MUSCULOSKELETAL: Strength judged to be 5-/5 for the major muscle groups in the upper extremity. The patient has some soreness and discomfort in the right hand. He squeezes and massages it note some improvement in the pain and discomfort. He does not find that ____ is not awakened by pain in this hand. He feels that his nonsteroidal medications help. EXTREMITIES: Lower extremity; the patient complains of low back pain. He does have a history consistent with spinal stenosis. IMPRESSION: 1. History of cervical radiculopathy, stable at this juncture. 2. Axial pain, requiring complex medical management using opioids. 3. Spinal stenosis. 4. Hypertension. 5. Osteoarthritis involving his knee. He has had a left knee replacement. 6. Left wrist/hand pain, which improves with massaging. RECOMMENDATIONS: We discussed treatment options with the patient. At this juncture, we will continue with his hydrocodone medication. He takes it sporadically. He will continue with the etodolac. He will monitor his GI tract. If he notes some increased discomfort associated with his GI tract. He will stop taking the etodolac medication. We described the possible complications one can have with GI irritation and ulcer formation. He recently stopped working. He states that he was sent home from his job a few days ago. 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 He is now settling down to home life and has a number of projects that he is going to work on his home. He will call us if [place] [address] PAIN MANAGEMENT CONSULTATION Name: SUZY ALMONTE Room: [facility]#: [id number] Admission: 01/31/20 Attend Phys: Binta Bennett MD Discharge: Date of : 50 Report #: [id number] We would like to thank you for letting us participate in his care. We hope he continues to improve. <ELECTRONICALLY SIGNED> By: Binta Bennett MD 02/01/20 0825 [id number]. Tom Bennett MD /nt
== END ==
LOC: M.PC 04:39
DX: M54.2 Cervicalgia (principal); M25.511 Pain in right shoulder; M25.512 Pain in left shoulder; M79.602 Pain in left arm; M25.532 Pain in left wrist; M17.11 Unilateral primary osteoarthritis, right knee; I10 Essential (primary) hypertension; M48.00 Spinal stenosis, site unspecified; F11.20 Opioid dependence, uncomplicated; Z87.39 Personal history of other diseases of the musculoskeletal system and connective tissue; Z88.0 Allergy status to penicillin; Z88.5 Allergy status to narcotic agent; Z88.8 Allergy status to other drugs, medicaments and biological substances; Z79.84 Long term (current) use of oral hypoglycemic drugs; Z79.899 Other long term (current) drug therapy

== ENCOUNTER → 2020-05-24 | Outpatient (CLI) | payer MEDICARE ==
[~2020-05-24] MED LIST changes: +MOBIC15 MG PO
--- NOTE | 2020-05-25 09:02 | PAINCON ---
[address] [address] PAIN MANAGEMENT CONSULTATION Name: GAGESUZY Bella Room: [facility] Cristiano.#: [id number] Admission: 05/24/20 Attend Phys: Binta Bennett MD Discharge: Date of : 50 Report #: [id number] THIS REPORT FOR: //name// cc: Cesar Ruiz Bruce R. DO ~ THIS REPORT FOR: //name// CC: Cesar Bennett DATE OF SERVICE: 05/24/2020 CHIEF COMPLAINT: Neck pain and low back pain. HISTORY: The patient is a 70-year-old gentleman who has been followed in the pain clinic because of chronic pain. He rates his pain today as 4/10. He finds that Mobic medication has been helpful. The etodolac medication was more expensive. Overall, he feels that the Mobic is working reasonably well. He has had no complications with GI complaints from the medication. He feels that the Germ[place] medication is helpful as well. He has used Flexeril in the past. He would like to try this medication again for its antimuscle spasms qualities. He has been staying home because of the COVID-19. He feels overall that things are going reasonably well and would like to continue with his current medical regimen. ALLERGIES: PENICILLIN, ADHESIVE TAPE, MUSHROOMS. CURRENT MEDICATIONS: Albuterol 2 puffs, aspirin 81 mg, Zyrtec 10 mg, fish oil 100 mg, Colace 100 mg, Mobic 15 mg daily, hydrocodone 10/325 one p.o. q. 4-6 hours p.r.n., Prevacid 15 mg, lisinopril 10 mg, Centrum Silver, MiraLax, Maxzide 25 mg with fluid removal from the lower extremity. PAIN CLINIC ASSESSMENT AND PQRS: 1. The patient has some arthritic changes in his left knee. He has had a knee replacement. He is not being treated for rheumatoid arthritis. 2. Height 5 feet 9 inches, weight 307 pounds, BMI is 45. 3. Vital Signs: Blood pressure 125/69, heart rate 73, respiratory rate 16, room air saturation 95%, temperature 98.3. 4. Pain intensity score 4/10. 5. Fall history: The patient has not fallen in the last 3 months. 6. Blood thinner. The patient is not on a blood thinning medication. 7. Hypertension. The patient is being treated for hypertension. 8. Opioids greater than 6 weeks. The patient received medication from the pain clinic. 9. Risk assessment tool, low for opioid use. 10. Functional assessment tool, [place] [address] PAIN MANAGEMENT CONSULTATION Name: SUZY ALMONTE [id number] Admission: 05/24/20 Attend Phys: Binta Bennett MD Discharge: Date of : 50 Report #: [id number] 11. Recreational drug use, the patient denies. 12. Tobacco: The patient stopped 6 years ago, 40-year smoking history. 13. Alcohol: The patient denies use of alcoholic beverages except on rare occasion. PHYSICAL EXAMINATION: GENERAL: The patient is a well-developed, well-nourished, somewhat obese white male, appears his stated age. He is alert and oriented x 3. His affect is appropriate. Speech is fluent. HEENT: Normocephalic, atraumatic. Extraocular eye muscles intact. Sclerae nonicteric. Mucous membranes are moist. The patient is wearing a mask. NECK: Without adenopathy or JVD. Has had some shoulder pain. HEART: Regular rate. LUNGS: Clear to auscultation, distant. MUSCULOSKELETAL: Strength 5-/5 for the major muscle groups in the upper extremity. Lower extremity muscle strength judged to be 5-/5 for the major muscle groups. The patient complains of some pain in the low back area. He does have a history consistent with spinal stenosis. IMPRESSION: 1. History of cervical radiculopathy, stable at this juncture. 2. History of spinal stenosis. 3. Axial pain requiring complex medical management using opioids. 4. Hypertension. 5. Osteoarthritis involving the left knee, has been replaced. 6. Left wrist and hand pain. RECOMMENDATIONS: We discussed treatment options with the patient. At this juncture, we will continue with his medications of Germ[place] 10 mg 1 p.o. q.i.d. He will also continue with Mobic. He does have some GI problems. He will continue to monitor the use of Mobic. If he notes increasing GI complaints, he will stop taking this medication. He also would like to try Flexeril for muscle spasms. He has found that this has been beneficial in the past. A script for this medication has been provided. He will call us if he has any concerns. He is continuing to monitor the COVID-19 progression. He does have daughter who is a high school home economics teacher. He does have a grandchild that lives with him. We would like to thank you for letting us participate in his care. We hope he continues to improve. <ELECTRONICALLY SIGNED> By: Binta Bennett MD 05/25/20 [id number] 1905N. MD grover Williamson
== END ==
LOC: M.PC 04:26
PROVIDERS: ATTEND Anesthesiology Pain Medicine
DX: I10 Essential (primary) hypertension (principal); M17.12 Unilateral primary osteoarthritis, left knee; M25.532 Pain in left wrist; M79.642 Pain in left hand; M79.629 Pain in unspecified upper arm; M48.02 Spinal stenosis, cervical region; M54.12 Radiculopathy, cervical region

== ENCOUNTER → 2020-06-14 | Outpatient (CLI) | payer MEDICARE, OTHER ==
--- NOTE | 2020-07-03 15:37 | PAINCON ---
[address] [address] PAIN MANAGEMENT CONSULTATION Name: GAGESUZY Bella Room: [facility] Cristiano.#: [id number] Admission: 06/14/20 Attend Phys: Binta Bennett MD Discharge: Date of : 50 Report #: [id number] THIS REPORT FOR: //name// cc: Miquel Hoff Vincent R. DO ~ THIS REPORT FOR: //name// CC: Binta Hoff DATE OF SERVICE: 06/14/2020 CHIEF COMPLAINT: Neck and arm pain. HISTORY: The patient is a 70-year-old gentleman who has been followed in the Pain Clinic because of low back pain as well as neck pain. Notes that his low back pain is getting worse. He would like to consider an MRI of his back. He would like to consider an epidural injection. He rates his pain as an 8/10. He feels that his medications of hydrocodone are helpful. Notes that when he gets up in the morning, the pain can be as high as a level of 10. As the day goes on, it might decrease to 7-8. Notes that the pain in the right side continues to become more problematic. He denies any new trauma. He feels that overall he feels like it is getting worse. He has been finishing a room remodeling. He also notes riding on a tractor can exacerbate the discomfort. Notes that there is a certain area was compressed in the right lower portion of his back can be quite problematic. Appears it might be in trigger point. ALLERGIES: PENICILLIN, ADHESIVE TAPE, MUSHROOMS. CURRENT MEDICATIONS: Albuterol 2 puffs, aspirin 81 mg, Zyrtec 10 mg, fish oil 100 mg, Colace 100 mg, Mobic 15 mg, hydrocodone 10/325 every 4-6 hours p.r.n., Prevacid 15 mg, lisinopril 10 mg, Centrum Silver, MiraLax, and Maxzide 25 mg for fluid removal from the lower extremities. PAIN CLINIC ASSESSMENT AND PQRS: 1. The patient has some arthritic changes in his left knee. He has had a knee replacement. He is not being treated for rheumatoid arthritis. 2. Height 5 feet 9 inches, weight 306 pounds, BMI is 45. 3. Vital signs: Blood pressure 140/65, heart rate 94, respiratory rate 18, room air saturation 94%, and temperature 97.3. 4. Pain intensity 8/10. 5. Fall history: The patient has not fallen in the last 3 months. 6. Blood thinner. The patient is not on a blood thinning medication. 7. Hypertension. The patient is being treated for hypertension. 8. Opioids greater than 6 weeks. The patient received medication [place] [address] PAIN MANAGEMENT CONSULTATION Name: USZY ALMONTE Room: [facility]#: [id number] Admission: 06/14/20 Attend Phys: Binta Bennett MD Discharge: Date of : 50 Report #: [id number] 9. Risk assessment tool, low for opioid use. 10. Functional assessment tool reviewed. 11. Recreational drug use. The patient denies. 12. Tobacco: The patient stopped smoking 6 years ago, had a 90-eyxs-wkul history. 13. Alcohol. The patient denies use of alcoholic beverages except on rare occasion. PHYSICAL EXAMINATION: GENERAL: The patient is a well-developed, well-nourished white male. Appears somewhat obese. He appears his stated age. He is alert and oriented x 3. His affect is appropriate. Speech is fluent. HEENT: Normocephalic, atraumatic. Extraocular eye muscles intact. Sclerae nonicteric. Mucous membranes are moist. The patient is wearing a facial covering. NECK: Without adenopathy. The patient has some discomfort in his shoulder. HEART: Regular rate. LUNGS: Clear to auscultation. MUSCULOSKELETAL: The patient without significant scoliosis, kyphosis or lordosis. Muscle strength in the lower extremity, 5-/5 for the major muscle groups in the lower extremity. The patient has some pain and discomfort in the low back area. Palpation in the right posterior superior iliac spine near the gluteus bryan does cause a reproduction of the patient's comfort. He also has a history of spinal stenosis with increased discomfort with prolonged standing or activity. IMPRESSION: 1. History of cervical radiculopathy, stable at this juncture. 2. History of spinal stenosis. 3. Axial pain requiring complex medical management with opioids. 4. Hypertension. 5. Osteoarthritis involving the left knee, which has been replaced. 6. Left wrist pain. 7. Myofascial pain. RECOMMENDATIONS: We discussed treatment options with the patient. The patient has an area in the lower portion of his back, which is quite problematic. Palpation in this area does reproduce a significant component of pain when he is experiencing. We discussed the risks and benefits of an injection into the area with local anesthetic and steroid and the patient elects to proceed. PROCEDURE NOTE: The patient was taken to the procedure area. He was then assisted in getting on the examination table. His back was sterilely prepped with a Betadine solution in the right posterior superior iliac spine area. Palpation reproduces discomfort. A 25-gauge needle was then advanced into the area of discomfort. The patient tolerated the procedure well. Total of 8 mL of [facility] [address] [place] [address] PAIN MANAGEMENT CONSULTATION Name: SUZY ALMONTE Room: [facility]#: [id number] Admission: 06/14/20 Attend Phys: Binta Bennett MD Discharge: Date of : 50 Report #: [id number] 0.5% bupivacaine and 80 mg Depo-Medrol was injected. The patient remained in the Pain Clinic for an appropriate amount of time. He will follow up in the future as needed. A script for his medications of Flexeril 10 mg 1 p.o. b.i.d., hydrocodone 10/325 one p.o. every 4 hours, total of 90 tablets were provided. The patient will also continue p.r.n. with meloxicam 15 mg. If he notes some increased GI pain or discomfort, he will stop taking the Mobic medication. We would like to thank you for letting us participate in his care. We hope he continues to improve. <ELECTRONICALLY SIGNED> By: Binta Bennett MD 07/03/20 [id number]. Tom Bennett MD /nt
== END | disposition home or self-care (01) ==
LOC: M.PC 11:50
PROVIDERS: ATTEND Anesthesiology Pain Medicine
DX: M79.18 Myalgia, other site (principal); M54.5 Low back pain; M54.2 Cervicalgia; I10 Essential (primary) hypertension; M17.12 Unilateral primary osteoarthritis, left knee; Z79.891 Long term (current) use of opiate analgesic; Z98.890 Other specified postprocedural states; Z96.652 Presence of left artificial knee joint; Z79.899 Other long term (current) drug therapy; Z88.0 Allergy status to penicillin

== ENCOUNTER → 2020-07-19 | Outpatient (CLI) | payer MEDICARE, OTHER ==
--- NOTE | 2020-07-31 13:31 | PAINCON ---
[address] [address] PAIN MANAGEMENT CONSULTATION Name: GAGESUZY Bella Room: [facility] CristianoPippa#: [id number] Admission: 07/19/20 Attend Phys: Binta Bennett MD Discharge: Date of : 50 Report #: [id number] THIS REPORT FOR: //name// cc: Miquel Hoff Vincent R. DO ~ THIS REPORT FOR: //name// CC: Binta Hoff DATE OF SERVICE: 07/19/2020 CHIEF COMPLAINT: Neck pain. HISTORY: The patient is a 70-year-old gentleman who has been followed in the pain Clinic because of back pain. He has had pain in his low back area, which continues to be problematic. He also has a history of cervical neck pain. Today, the pain is most problematic is in the low back. Right side is more problematic than the left. He was walking. He stepped in his yard. There was a hole in this area. This exacerbated the pain in the low back area. He has had pain, which he rates as a 3/10. Notes that overactivity makes it worse. He has not noticed significant improvement with his medications of hydrocodone, meloxicam and muscle relaxant, Flexeril. He has pain in the left and right low back area. ALLERGIES: PENICILLIN, ADHESIVE TAPE, MUSHROOMS. CURRENT MEDICATIONS: Albuterol 2 puffs, aspirin 81 mg, Zyrtec 10 mg, fish oil 100 mg of Colace 100 mg, Mobic 15 mg, hydrocodone 10/325 q 4-6 hours p.r.n., Prevacid 15 mg, lisinopril 10 mg, Centrum Silver, MiraLax, Maxzide 25 mg for fluid removal from the lower extremities. PAIN CLINIC ASSESSMENT AND PQRS: 1. The patient has some arthritic changes in his left knee. He has had a knee replacement. He is not being treated for rheumatoid arthritis. 2. Height 5 feet 9 inches, weight 302 pounds, BMI 44.4. 3. Vital signs: Blood pressure 133/71, heart rate 71, respiratory rate 16, room air saturation 95%, temperature 98.0. 4. Pain intensity 310. 5. Fall history: The patient has not fallen in the last 3 months, but did injure his low back after stepping in a hole in his yard. 6. Blood thinner. The patient is not on a blood thinning medication. 7. Hypertension. The patient is being treated for hypertension. 8. Opioids greater than 6 weeks. The patient receives medications from the pain clinic. 9. Risk assessment tool, [place] [address] PAIN MANAGEMENT CONSULTATION Name: SUZY ALMONTE Room: [facility]#: [id number] Admission: 07/19/20 Attend Phys: Binta Bennett MD Discharge: Date of : 50 Report #: [id number] 10. Functional assessment tool reviewed. 11. Recreational drug use. The patient denies. 12. Tobacco: The patient stopped smoking about 6 years ago, had a 12-ixmh-lvah history. 13. Alcohol. The patient denies use of alcoholic beverages except on rare occasion. PHYSICAL EXAMINATION: GENERAL: The patient is a well-developed, well-nourished white male. Appears his stated age. He is somewhat obese. He appears alert and oriented x 3. His affect is appropriate. Speech is fluent. The patient is wearing a facial covering. HEENT: Normocephalic, atraumatic. Extraocular eye muscles intact. Sclerae nonicteric. Mucous membranes are moist. NECK: Without adenopathy. The patient has some discomfort in his shoulder. HEART: Regular rate. LUNGS: Generally clear. MUSCULOSKELETAL: Without significant scoliosis, kyphosis or lordosis. Muscle strength in lower extremities 5-/5 for the major muscle groups in the lower extremity. The patient has some pain and discomfort in the low back area. Palpation in the right as well as the left posterior superior iliac spine area to reproduce pain and discomfort, which the patient is experiencing. Also, has a history of spinal stenosis and increased pain with prolonged standing. IMPRESSION: 1. History of low back pain, which has increased after stepping in a hole. 2. History of cervical radiculopathy, stable at this juncture. 3. History of spinal stenosis. 4. Axial pain requiring complex medical management using opioids. 5. Hypertension. 6. Osteoarthritis involving the left knee, which has been replaced. 7. Left wrist pain. 8. Myofascial pain. RECOMMENDATIONS: We discussed treatment options with the patient. At this juncture, we will proceed with trigger point injections to the left and the right low back area. He is having pain and discomfort, which is not radiating. Palpation in the area of the left and right posterior superior iliac spine area do cause a reproduction of the patient's discomfort. We will proceed with trigger point injections with local anesthetic and with steroid. PROCEDURE NOTE: The patient was taken to the procedure area. He was then assisted in getting on the examination table. His back was sterilely prepped with chlorhexidine solution in the left and right posterior superior iliac spine area. Palpation on the right side reproduce the discomfort. Trigger point was noted. A 25-gauge needle was then advanced into [place] [address] PAIN MANAGEMENT CONSULTATION Name: GAGESUZY Room: [facility]#: [id number] Admission: 07/19/20 Attend Phys: Binta Bennett MD Discharge: Date of : 50 Report #: [id number] state that this reproduced his pain and discomfort. Aspiration was negative. A total of 8 mL of 0.5% bupivacaine and 80 mg Depo-Medrol was injected. The contralateral left side was treated in a like fashion. A 25-gauge needle was then advanced into the area near the posterior superior iliac spine and gluteus bryan and latissimus dorsi. Trigger point was noted. A 25-gauge needle was then advanced. The patient states this reproduced his discomfort. Aspiration was negative. Total of 80 mg Depo-Medrol with 7 mL of 0.5% bupivacaine was injected. The patient tolerated the procedure well. He tolerated two trigger points well. There were no complications. He has been ____ of the ground all areas in his yard. We would like to thank you for letting us participate in his care. We hope he continues to improve. <ELECTRONICALLY SIGNED> By: Binta Bennett MD 07/31/20 1331 [id number]. Tom Bennett MD /nt
== END | disposition home or self-care (01) ==
LOC: M.PC 11:30
PROVIDERS: ATTEND Anesthesiology Pain Medicine
DX: M54.2 Cervicalgia (principal); M54.12 Radiculopathy, cervical region; M19.90 Unspecified osteoarthritis, unspecified site; M25.532 Pain in left wrist; I10 Essential (primary) hypertension; Z88.0 Allergy status to penicillin; Z88.8 Allergy status to other drugs, medicaments and biological substances; Z79.82 Long term (current) use of aspirin; Z79.899 Other long term (current) drug therapy

== ENCOUNTER → 2020-08-23 | Outpatient (CLI) | payer MEDICARE, OTHER ==
[~2020-08-23] MED LIST changes: +MEDROLDOSEPACK PO
--- NOTE | 2020-09-12 13:58 | PAINCON ---
[address] [address] PAIN MANAGEMENT CONSULTATION Name: GAGESUZY Bella [facility] [id number] Admission: 08/23/20 Attend Phys: Binta Bennett MD Discharge: Date of : 50 Report #: [id number] THIS REPORT FOR: //name// cc: Miquel Hoff Vincent R. DO ~ CC: Binta Hoff DO DATE OF SERVICE: 09/10/2020 CHIEF COMPLAINT: "Bilateral hip pain and left knee pain, I fell from a stool on my left hip with out of place." HISTORY: The patient is a 70-year-old gentleman who has been followed in the Pain Clinic because of chronic pain. Has pain in his low back area. He has a history of cervical and neck pain. He also has problems with his low back. States that he is having pain in the left and right hip. Has some pain in his left knee. He reports that he fell from a stool. Injured his left hip with out of place. Also, has bilateral hip pain and is having more discomfort in the left knee. Rates his pain as 0 while sitting. It rises to the level of 2-3 depending on his activity level. He has been using Biofreeze. He has used a walker and a cane. ALLERGIES: PENICILLIN, ADHESIVE TAPE, MUSHROOMS. CURRENT MEDICATIONS: Albuterol 2 puffs, aspirin 81 mg, Zyrtec 10 mg, fish oil 1000 mg, Colace 100 mg, Mobic 15 mg, hydrocodone 10/325 q. 4-6 hours, Prevacid 15 mg, lisinopril 10 mg, Centrum Silver, MiraLax, Maxzide 25 mg for fluid removal from the lower extremities. PAIN CLINIC ASSESSMENT/PQRS: 1. The patient has some arthritic changes in his left knee. He has had a knee replacement. He is not being treated for rheumatoid arthritis. 2. Height 5 feet 10 inches, weight 304 pounds, BMI is 43. 3. Vital signs: Blood pressure 140/76, heart rate 104, respiratory rate 20, room air saturation 95%, temperature is 97.1. 4. Pain intensity, 2-3 with activity. 5. Fall risk. The patient did fall from a stool and injured his left hip. 6. Blood thinner. The patient is not on a blood thinning medication. 7. Hypertension. The patient is being treated for hypertension. 8. Opioids greater than 6 weeks. The patient receives medication from the Pain Clinic. 9. Risk assessment tool, low for opioid use. 10. Functional assessment tool reviewed. 11. Recreational drug use: [place] [address] PAIN MANAGEMENT CONSULTATION Name: SUZY ALMONTE Room: [facility]#: [id number] Admission: 08/23/20 Attend Phys: Binta Bennett MD Discharge: Date of : 50 Report #: [id number] 12. Tobacco: The patient stopped smoking 6 years ago, had a 95-vnhb-goxp smoking history. 13. Alcohol. The patient denies use of alcoholic beverages except on rare occasions. PHYSICAL EXAMINATION: GENERAL: The patient is a well-developed, well-nourished white male. Appears his stated age. He is somewhat obese. He is alert and oriented x 3. His affect is appropriate. Speech is fluent. The patient is wearing a facial covering. NECK: Without adenopathy or JVD. HEENT: Normocephalic, atraumatic. Extraocular eye muscles intact. Sclerae nonicteric. LUNGS: Clear. ABDOMEN: Nontender. MUSCULOSKELETAL: Upper extremity muscle strength is judged to be 5/5 for the major muscle groups in the upper extremity. The patient is without significant scoliosis, kyphosis or lordosis. The patient does complain of pain in the lower portion of his back. Complains of pain that is radiating down into his legs and hips bilaterally. Has some increased pain in the left knee. Has a history of spinal stenosis and notes increased pain with prolonged standing. IMPRESSION: 1. History of low back pain, which has increased after stepping in a hole. 2. Increase in pain after falling from a stool and states that his hip has been out of place. 3. History of cervical radiculopathy, stable at this juncture. 4. History of spinal stenosis. 5. Complex pain requiring active medications, using opioids. 6. Hypertension. 7. Osteoarthritis involving the left knee, which has been replaced. 8. Left wrist pain. 9. Myofascial pain. RECOMMENDATIONS: We discussed treatment options with the patient. We will continue with the patient's current medications. A script for his medications has been rewritten. The patient is aware that opioid medications can become less effective as time goes on. He has taken the medication as prescribed. He did fall and notes some increased amount of pain and discomfort. The good thing is he is not having as much discomfort when he is stationary. He will continue with his medications. A script has been provided. He will call us if he has any concerns. Does find some Biofreeze does have some benefit. [address] [place] [address] PAIN MANAGEMENT CONSULTATION Name: SUZY ALMONTE Shayne Room: [facility]#: [id number] Admission: 08/23/20 Attend Phys: Binta Bennett MD Discharge: Date of : 50 Report #: [id number] We would like to thank you for letting us participate in his care. We hope he continues to improve. <ELECTRONICALLY SIGNED> By: Binta Bennett MD 09/12/20 1358 [id number]. Tom Bennett MD /nt
== END ==
LOC: M.PC 11:40
PROVIDERS: ATTEND Anesthesiology Pain Medicine
DX: M17.12 Unilateral primary osteoarthritis, left knee (principal); M25.551 Pain in right hip; M25.552 Pain in left hip; M25.561 Pain in right knee; M25.662 Stiffness of left knee, not elsewhere classified; F11.20 Opioid dependence, uncomplicated; I10 Essential (primary) hypertension; M25.532 Pain in left wrist; M79.10 Myalgia, unspecified site; Z87.39 Personal history of other diseases of the musculoskeletal system and connective tissue; Z88.8 Allergy status to other drugs, medicaments and biological substances; Z79.899 Other long term (current) drug therapy

== ENCOUNTER → 2020-11-30 | Outpatient (CLI) | payer MEDICARE, OTHER | LOC: M.CT 12:25 | PROVIDERS: ATTEND Family Medicine | DX: J84.10 Pulmonary fibrosis, unspecified (principal); I70.0 Atherosclerosis of aorta; I25.10 Atherosclerotic heart disease of native coronary artery without angina pectoris; I51.7 Cardiomegaly; M25.78 Osteophyte, vertebrae; J98.11 Atelectasis ==

== ENCOUNTER → 2021-01-08 | Outpatient (CLI) | payer MEDICARE, OTHER | LOC: M.PC 11:46 | PROVIDERS: ATTEND Anesthesiology Pain Medicine | DX: M54.5 Low back pain (principal); M54.2 Cervicalgia; M79.10 Myalgia, unspecified site; M17.12 Unilateral primary osteoarthritis, left knee; I10 Essential (primary) hypertension; F11.20 Opioid dependence, uncomplicated; Z87.39 Personal history of other diseases of the musculoskeletal system and connective tissue ==

== ENCOUNTER → 2021-02-26 | Outpatient (CLI) | payer MEDICARE, OTHER ==
--- NOTE | 2021-03-25 08:18 | PF ---
[address] [address] PULMONARY FUNCTION REPORT Name: SUZY ALMONTE Room: [facility]#: [id number] Admission: 02/26/21 Attend Phys: Damon Young MD Discharge: Date of : 50 Report #: [id number] THIS REPORT FOR: cc: Miquel Hoff Vincent R. DO Pervez, Adeel MD ~ DOC #: [id number] Damon Young MD DATE OF VISIT: 02/26/2021 SLEEP STUDY INDICATION FOR SLEEP STUDY: Obstructive sleep apnea, previously diagnosed with an apnea-hypopnea index of 44. The patient also has a history of narcotic drug use, has been treated with CPAP and has failed CPAP therapy, sleep study is now being performed for BiPAP titration. INTERPRETATION: Total duration of the study is 395 minutes out of which he was asleep for 317 minutes with an overall sleep efficiency of 80.2%. Sleep onset was rapid occurring within 1 minute of lying down in bed. REM onset occurred 56 minutes after sleep onset. N1 sleep duration was 9%, N2 duration was 31%, N3 duration was 37%, REM duration was 23%. Mean heart rate was 65 and periodic limb movement index was normal at 5.3. The arousal index was normal at 9.3. FINDINGS: This is a BiPAP titration and review of the BiPAP titration indicates the patient was initially started on BiPAP of 12/8 and this was gradually increased to 15/10. The patient had a favorable response to BiPAP therapy on the final BiPAP pressure. There were still occasional obstructive apneas as well as hypopneas noted. The apnea-hypopnea index did, however, improve to 7.9 and O2 saturation is mostly maintained at or above 88%. The patient only spent 3 minutes below O2 saturation of 88% during this entire sleep study. IMPRESSION: Obstructive sleep apnea with an apnea-hypopnea index of 44 diagnosed in 2007. The patient has a history of narcotic drug use as well and I suspect that there is a significant component of central sleep apnea as well. He has been treated with CPAP and he has failed CPAP therapy during this sleep study. There is marked improvement noted with the administration of a BiPAP of 15/10, occasional obstructive apneas as well as hypopneas are still noted on the final BiPAP pressure. O2 saturation is adequately maintained. REM sleep is observed on the final BiPAP pressure. RECOMMENDATIONS: 1. I recommend switching the patient over to a BiPAP. Due to the presence of occasional sleep-related respiratory events and the final BiPAP pressure as above, I am electing to set his iPAP higher than the final BiPAP pressure used here. We would go ahead and set him up on a BiPAP of 17/10 with heated humidity and mask per patient's preference. While asleep during the sleep [place], [place] [address] PULMONARY FUNCTION REPORT Name: GAGESUZY Room: [facility] Marco Antonio#: [id number] Admission: 02/26/21 Attend Phys: Damon Young MD Discharge: Date of : 50 Report #: [id number] AirFit F20 full face mask was used. 2. Recommend weight loss. 3. Recommend avoiding driving or other activities requiring vigilance if drowsy. This entire sleep study was reviewed by a board certified sleep physician. MD ROYAL Sevilla/TERRY <ELECTRONICALLY SIGNED> By: Damon Young MD 03/25/21 0818 2218 0251Adonya Young MD /nt
== END ==
LOC: M.SLEEPLAB 20:44
PROVIDERS: ATTEND Internal Medicine Critical Care Medicine
DX: G47.33 Obstructive sleep apnea (adult) (pediatric) (principal); E66.01 Morbid (severe) obesity due to excess calories; F11.90 Opioid use, unspecified, uncomplicated; Z68.42 Body mass index [BMI] 45.0-49.9, adult

== ENCOUNTER → 2021-02-28 | Outpatient (CLI) | payer MEDICARE, OTHER | LOC: M.PC 08:26 | PROVIDERS: ATTEND Anesthesiology Pain Medicine | DX: M54.12 Radiculopathy, cervical region (principal); M48.02 Spinal stenosis, cervical region; I10 Essential (primary) hypertension; M17.12 Unilateral primary osteoarthritis, left knee; M79.10 Myalgia, unspecified site; Z79.891 Long term (current) use of opiate analgesic ==

== ENCOUNTER → 2021-03-05 | Outpatient (CLI) | payer MEDICARE, OTHER ==
--- NOTE | 2021-03-25 08:18 | PF ---
[address] [address] PULMONARY FUNCTION REPORT Name: SUZY ALMONTE Room: [facility]#: [id number] Admission: 03/05/21 Attend Phys: Damon Young MD Discharge: Date of : 50 Report #: [id number] THIS REPORT FOR: cc: Miquel Hoff Vincent R. DO Pervez, Adeel MD ~ DOC #: [id number] Damon Young MD DATE OF VISIT: 03/05/2021 The FEV1/FVC ratio is normal at 73%. The FVC is decreased to 61%. The FEV1 is also decreased to 61%. The FEF 25-75 is decreased to 53%. The total lung capacity is decreased to 59% with residual volume decreased to 88%. The DLCO as adjusted for hemoglobin is decreased to 53%. After the administration of a bronchodilator, there is no significant increase in the patient's spirometry. The patient's post-bronchodilator FEV1 is 2.03 liters. IMPRESSION: 1. There is severe restriction with a total lung capacity decreased to 59%. 2. Underlying obstruction, if present. Cardiovascular restriction. I feel that the likelihood is that there is an underlying component of obstruction also present as the flow volume loop is concave upwards. 3. The DLCO as adjusted for hemoglobin is moderately decreased to 53%. Damon Young MD AP/MACRINA/AMI <ELECTRONICALLY SIGNED> By: Damon Young MD 03/25/21 08 2044 0118Adonya Young MD /nt
== END ==
LOC: M.PUL 09:00
PROVIDERS: ATTEND Internal Medicine Critical Care Medicine
DX: J44.9 Chronic obstructive pulmonary disease, unspecified (principal); E66.01 Morbid (severe) obesity due to excess calories; Z68.42 Body mass index [BMI] 45.0-49.9, adult; Z88.0 Allergy status to penicillin

== ENCOUNTER → 2021-04-08 | Outpatient (CLI) | payer MEDICARE, OTHER | LOC: M.ULTRA 13:00 | PROVIDERS: ATTEND Internal Medicine Critical Care Medicine | DX: I83.93 Asymptomatic varicose veins of bilateral lower extremities (principal); R79.89 Other specified abnormal findings of blood chemistry ==

== ENCOUNTER → 2021-04-23 | Outpatient (CLI) | payer MEDICARE, OTHER | LOC: M.PC 08:52 | PROVIDERS: ATTEND Anesthesiology Pain Medicine | DX: M17.12 Unilateral primary osteoarthritis, left knee (principal); M48.061 Spinal stenosis, lumbar region without neurogenic claudication; I10 Essential (primary) hypertension; Z79.891 Long term (current) use of opiate analgesic; Z87.891 Personal history of nicotine dependence; Z79.899 Other long term (current) drug therapy; Z88.0 Allergy status to penicillin ==

== ENCOUNTER → 2021-05-13 | Outpatient (CLI) | payer MEDICARE, OTHER | LOC: M.ULTRA 16:00 | PROVIDERS: ATTEND Family Medicine | DX: R22.41 Localized swelling, mass and lump, right lower limb (principal); M79.89 Other specified soft tissue disorders; L53.9 Erythematous condition, unspecified ==

== ENCOUNTER → 2021-06-11 | Outpatient (CLI) | payer MEDICARE, OTHER | LOC: M.CT 10:29 | PROVIDERS: ATTEND Family Medicine | DX: K57.30 Diverticulosis of large intestine without perforation or abscess without bleeding (principal); J98.11 Atelectasis; I25.10 Atherosclerotic heart disease of native coronary artery without angina pectoris; N26.1 Atrophy of kidney (terminal); I70.0 Atherosclerosis of aorta; M43.16 Spondylolisthesis, lumbar region ==

== ENCOUNTER → 2021-06-11 | Outpatient (CLI) | payer MEDICARE, OTHER | LOC: M.PC 10:26 | PROVIDERS: ATTEND Anesthesiology Pain Medicine | DX: M54.5 Low back pain (principal); M54.12 Radiculopathy, cervical region; M48.02 Spinal stenosis, cervical region; I10 Essential (primary) hypertension; M17.12 Unilateral primary osteoarthritis, left knee; Z79.891 Long term (current) use of opiate analgesic; Z79.899 Other long term (current) drug therapy ==

== ENCOUNTER → 2021-08-06 | Outpatient (CLI) | payer MEDICARE, OTHER ==
[~2021-08-06] MED LIST changes: +HYDROCODON-ACE1 EAC5 PO
== END ==
LOC: M.PC 08:04
PROVIDERS: ATTEND Anesthesiology Pain Medicine
DX: M54.12 Radiculopathy, cervical region (principal); I10 Essential (primary) hypertension; M54.50 Low back pain, unspecified; M17.12 Unilateral primary osteoarthritis, left knee; Z96.652 Presence of left artificial knee joint; M79.18 Myalgia, other site; M48.00 Spinal stenosis, site unspecified; Z88.0 Allergy status to penicillin; Z88.8 Allergy status to other drugs, medicaments and biological substances; Z79.899 Other long term (current) drug therapy

== ENCOUNTER → 2021-10-10 | Outpatient (CLI) | payer MEDICARE, OTHER ==
[2021-10-10] VITALS (10 sets, daily range): BP systolic 108–141; BP diastolic 72–93
[~2021-10-10] MED LIST changes: +ELIQUIS5 MG PO; +FLECAINIDE ACET50 M2 PO; +TOPROL XL50 MG PO
--- NOTE | 2021-10-10 15:06 | TEE ---
[place] [address] TRANSESOPHAGEAL ECHOCARDIOGRAM Name: SUZY ALMONTE Room: [facility]#: [id number] Admission: 10/10/21 Attend Phys: Eric Martin, Discharge: Date of : 50 Date of Service: 10/10/21 1506 Report #: [id number] THIS REPORT FOR: cc: Miquel Hoff Vincent R. DO Liston,Eric Lenz MD [facility] ~ APPROVED REPORT Study performed: 10/10/2021 13:38:01 EXAM: Transesophageal Echocardiogram Patient Location: Out-Patient Status: routine BSA: 2.49 HR: 130 bpm BP: 114/81 mmHg Rhythm: NSR Other Information Study Quality: Good Indications Atrial Fibrillation Echo Enhancing Agent Indication: Rule out Shunt Agent(s) / Amount(s) Used: Agitated Saline 10 cc Procedure After obtaining informed consent, patient underwent transesophageal echo in the [facility]. Type of Sedation : Conscious Sedation Sedation was administered by Anna Whitaker. Sedation start time: 1345 Case end Time: 1355 Sedation was achieved intravenously with: Versed (4) Fentanyl (75) Transesophageal probe was inserted and advanced into esophagus without difficulty by Eric Martin MD, FACC. Echo enhancement indication: R/O Septal defect. Echo enhancement agent administered: Agitated Saline The ARTHUR was performed without complications. Synchronized Cardioversion acheived with 300 Joules after 1 attempt(s). Rhythm following Synchronized Cardioversion: Normal Sinus Rhythm [address] [address] TRANSESOPHAGEAL ECHOCARDIOGRAM Name: GAGESUZY CAROL Room: [facility] M[facility]IMO Bernard#: [id number] Admission: 10/10/21 Attend Phys: Eric Martin, Discharge: Date of : 50 Date of Service: 10/10/21 1506 Report #: [id number] Throughout the procedure, the blood pressure, pulse oximetry, cardiac rhythm, and rate were monitored. The patient tolerated the procedure without adverse effects. Recovery from conscious sedation was uneventful and vital signs were stable. Left Ventricle The left ventricle is normal size. There is normal LV segmental wall motion. There is normal left ventricular wall thickness. Left ventricular systolic function is normal. LVEF is 60-65%. Right Ventricle The right ventricle is normal size. The right ventricular systolic function is normal. Atria The left atrium size is normal. No thrombus is visualized in the left atrium or appendage. Small PFO is noted. The right atrium size is normal. Aortic Valve The aortic valve is normal in structure. Trace aortic regurgitation. There is no aortic valvular stenosis. Mitral Valve The mitral valve is normal in structure. Trace mitral regurgitation. No evidence of mitral valve stenosis. Tricuspid Valve The tricuspid valve is normal in structure. There is no tricuspid valve regurgitation noted. Pulmonic Valve The pulmonary valve is normal in structure. There is no pulmonic valvular regurgitation. Great Vessels The aortic root is normal in size. Pericardium There is no pericardial effusion. <Conclusion> The left ventricle is normal size. There is normal left ventricular wall thickness. Left ventricular [place] [address] TRANSESOPHAGEAL ECHOCARDIOGRAM Name: SUZY ALMONTE Room: [facility]#: [id number] Admission: 10/10/21 Attend Phys: Eric Martin, Discharge: Date of : 50 Date of Service: 10/10/21 1506 Report #: [id number] LVEF is 60-65%. Small PFO is noted. The left atrium size is normal. No thrombus is visualized in the left atrium or appendage. Trace aortic regurgitation. Trace mitral regurgitation. <ELECTRONICALLY SIGNED> By: Eric Martin MD, FACC 10/10/21 1506 05 05 Eric Martin MD, FACC /INF
--- NOTE | 2021-10-11 18:15 | CARD ---
[address] [address] CARDIAC CATH REPORT Name: SUZY ALMONTE Room: [facility] M[place]IMO Quinonez.#: [id number] Admission: 10/10/21 Attend Phys: Eric Martin MD Discharge: Date of : 50 Report #: [id number] THIS REPORT FOR: cc: Miquel Hoff Vincent R. DO Liston, Michael J. MD [facility] ~ cc: Miquel Hoff DO, David R. Blick, MD [facility] DATE OF SERVICE: 10/10/2021 CARDIAC PROCEDURE PROCEDURE: DC cardioversion with transesophageal echocardiographic guidance. INDICATION: Persistent atrial flutter. DESCRIPTION OF PROCEDURE: The patient presented to the cardiac holding area for elective cardioversion. The patient was noted to be in atrial flutter with 2:1 conduction. A transesophageal echocardiogram was performed and revealed no evidence of intracardiac thrombus. This will be reported separately. At completion of the transesophageal echocardiogram, adequate sedation was assured. The patient was cardioverted from atrial flutter to normal sinus rhythm with a single biphasic shock of 300 joules. The patient tolerated the procedure well without complication. IMPRESSION: 1. Persistent atrial flutter. 2. Successful transesophageal-guided cardioversion to normal sinus rhythm. <ELECTRONICALLY SIGNED> By: Eric Martin MD, [facility] 10/11/21 1815 1408 [facility] Martin MD, FLORY /nt
== END | disposition home or self-care (01) ==
LOC: M.CL 12:51
PROVIDERS: ATTEND Internal Medicine Cardiovascular Disease
DX: I48.91 Unspecified atrial fibrillation (principal); I48.19 Other persistent atrial fibrillation; I08.0 Rheumatic disorders of both mitral and aortic valves; Z79.899 Other long term (current) drug therapy; Z98.890 Other specified postprocedural states; Z79.01 Long term (current) use of anticoagulants; Z88.0 Allergy status to penicillin

== ENCOUNTER 2021-10-20 20:14 | Inpatient (IN) | payer MEDICARE, OTHER ==
[~2021-10-20] VITALS: Ht 177.8 cm; Wt 136.1 kg
[2021-10-20 20:21] VITALS: BP 130/65
[2021-10-20 20:44] LABS: ABSOLUTE EOSINOPHILS 0.1 thou/uL (0.0-0.7); ABSOLUTE LYMPHOCYTES 1.4 thou/uL (0.8-5.3); ABSOLUTE MONOCYTES 0.4 thou/uL (0.0-1.2); BASOPHILS 0.7 %; EOSINOPHILS 2.3 %; HEMATOCRIT 37.9 % (42.0-52.0); HEMOGLOBIN 12.5 gm/dL (14.0-18.0); LYMPHOCYTES 27.7 %; MCH 32.5 pg (26.0-34.0); MCHC 33.1 g/dL (28.0-37.0); MCV 98.3 fL (80.0-100.0); MPV 7.1 fl. (7.2-11.1); NUCLEATED RBCS 0 /100WBC; PLATELET COUNT* 209 thou/uL (150-400); POLYS 60.3 %; RBC 3.85 mil/uL (4.50-6.00); WBC 4.9 thou/uL (4.0-11.0)
[2021-10-20 20:52] LABS: CALCIUM 8.7 mg/dL (8.5-10.1); CREATININE 1.7 mg/dL (0.6-1.3); POTASSIUM 4.8 mmol/L (3.5-5.1)
[2021-10-20 21:02] LABS: ALBUMIN 3.4 g/dL (3.4-5.0); MAGNESIUM 1.7 mg/dL (1.8-2.4); TOTAL BILIRUBIN 0.3 mg/dL (<0.1-1.0); TOTAL PROTEIN 7.1 g/dL (6.4-8.2)
[2021-10-20 23:33] LABS: URINE BILIRUBIN NEGATIVE (Negative); URINE BLOOD NEGATIVE (Negative); URINE CLARITY CLEAR; URINE COLOR YELLOW; URINE GLUCOSE-RANDOM NEGATIVE (Negative); URINE KETONES NEGATIVE (Negative); URINE LEUKOCYTES-REFLEX NEGATIVE (Negative); URINE NITRITE-REFLEX NEGATIVE (Negative); URINE PROTEIN NEGATIVE (Negative); URINE UROBILINOGEN 0.2 E.U./dl (0.2-1.0)
[2021-10-21] VITALS (16 sets, daily range): BP systolic 101–128; BP diastolic 51–74
--- NOTE | 2021-10-21 08:18 | EKG ---
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 : 1950 Requested By: Amber Wagner Order Number: [id number] MD: Lele Leger Measurements Intervals [place] Rate: 123 P: 262 HI: 152 QRS: 172 QRSD: 119 T: 25 QT: 350 QTc: 501 Interpretive Statements atrial flutter Consider dextrocardia Baseline wander in lead(s) V2 Compared to ECG 02/19/2016 20:50:15 Sinus rhythm no longer present Incomplete right bundle-branch block no longer present Electronically Signed On 10-21-2021 8:18:35 SCHOOL INSPECTOR by Lele Leger [email or web address] <ELECTRONICALLY SIGNED> By: Lele Leger MD, FACC 10/21/21 0818 14 14 Lele Leger MD, FACC /EPI
--- NOTE | 2021-10-21 08:21 | EKG ---
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 : 1950 Requested By: Amber Wagner Order Number: [id number] MD: Lele Leger Measurements Intervals [place] Rate: 98 P: MS: QRS: 145 QRSD: 109 T: 18 QT: 451 QTc: 577 Interpretive Statements Atrial flutter Left posterior fascicular block Low voltage, precordial leads Abnormal R-wave progression, late transition Prolonged QT interval Compared to ECG 10/20/2021 20:15:03 rate has slowed Electronically Signed On 10-21-2021 8:20:38 STORE STOCK HELP by Lele Leger [email or web address] <ELECTRONICALLY SIGNED> By: Lele Leger MD, FACC 10/21/21819 4 4 Lele Leger MD, FACC /EPI
[2021-10-22 00:42] VITALS: BP 110/54
[2021-10-22 04:28] VITALS: BP 115/58
--- NOTE | 2021-10-22 05:14 | NUR ---
ASSUMED PT CARE AT APPROX 1930. PT IS AWAKE AND ORIENTED X4. PT IS NOT IN DISTRESS, DENIES CHEST PAIN/DISCOMFORT. PT IS TRACING SR w/OCCASSIONAL PACs IN THE MONITOR. NO ACUTE CHANGES THROUGHOUT THIS SHIFT. CALL LIGHT WITHIN REACH, HOURLY ROUNDING DONE FOR PT SAFETY. FALL PRECAUTIONS IN PLACE.
[2021-10-22 05:33] LABS: CALCIUM 8.6 mg/dL (8.5-10.1); CREATININE 1.3 mg/dL (0.6-1.3); POTASSIUM 4.1 mmol/L (3.5-5.1)
[2021-10-22 08:00] VITALS: BP 114/49
--- NOTE | 2021-10-22 09:58 | NUR ---
CM ASSESSMENT: PT A&O, INDEPENDENT WITH ADL'S, AND ACTIVE. PT RESIDES AT HOME WITH SPOUSE. PT USES A CANE FOR MOBILITY. PT USES A BIPAP AT [facility] PROVIDED BY DEDE. PT HAS 0 HX OF HH OR SNF. PT CURRENTLY ON-SERVICE WITH [facility] FOR OUTPATIENT PT/OT, AND HE PLANS TO RESUME THIS AT D/C. NO CM D/C PLANNING NEEDS ANTICIPATED. CM WILL REMAIN AVAILABLE TO ASSIST AND FOLLOW NEEDED.
--- NOTE | 2021-10-22 10:19 | NUR ---
Nutrition: Pt admitted with rapid afib. H/o HTN, HLD, OBE, afib. Seen for high BMI. Wt: 300#, no significant wt changes. CHO controlled diet ordered. Albumin 3.4. Consider low nutrition risk.
[2021-10-22 12:21] VITALS: BP 121/66
--- NOTE | 2021-10-22 12:55 | EKG ---
[place] [address] ELECTROCARDIOGRAM REPORT Name: SUZY ALMONTE Room: [address] ADM IN .R.#: [id number] Admission: 10/20/21 Attend Phys: Lavon Chiang Discharge: Date of : 50 Date of Service: 10/22/21 0400 Report #: [id number] THIS REPORT FOR: //name// 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 : 1950 Requested By: Lele Leger Order Number: [id number] MD: Eric Martin Measurements Intervals [place] Rate: 79 P: 42 MT: 200 QRS: 89 QRSD: 112 T: 54 QT: 420 QTc: 482 Interpretive Statements Sinus rhythm Atrial premature complex Baseline wander in lead(s) V4,V6 Compared to ECG 10/21/2021 02:55:24 Atrial premature complex(es) now present Atrial flutter no longer present Left posterior fascicular block no longer present Electronically Signed On 10-22-2021 12:55:06 MICROBIAL SPECIALIST by Eric Martin [email or web address] <ELECTRONICALLY SIGNED> By: Eric Martin MD, FACC 10/22/21 1255 9 9 Eric Martin MD, FAC /EPI
--- NOTE | 2021-10-22 13:32 | CON ---
[address] [address] CONSULTATION Name: SUZY ALMONTE Room: [address] ADM IN M.R.#: [id number] Admission: 10/20/21 Attend Phys: Francheska Burns Discharge: Date of : 50 Report #: [id number] THIS REPORT FOR: cc: Miquel Hoff,Lele Lees MD [facility] ~ cc: MIQUEL HOFF DO DATE OF CONSULTATION: 10/21/2021 HISTORY OF PRESENT ILLNESS: The patient is a 71-year-old white male who came to the Emergency Room complaining of shortness of breath. The patient has no previous history of heart disease. Previous nuclear stress test in 2017 showed no evidence of ischemia. The patient recently had left hip replacement at [facility] in September. He was in the hospital about a week undergoing rehab. He was then discharged. Apparently, multiple family members including himself tested positive for COVID-19. He noticed some shortness of breath and cough. He then actually saw my nurse practitioner on 10/10. He was noted to be in atrial flutter. He was admitted to the hospital, underwent a ARTHUR and cardioversion by my partner, Dr. Martin. He was then started on flecainide and Eliquis as well as metoprolol for rate control and was discharged. However, he continues to be short of breath and coughing. On his watch, he was noted to be tachycardic. He came to the hospital last night and was noted to be back in atrial flutter. He was admitted for further evaluation and treatment. He denies any chest pain, lightheadedness, syncope or bleeding. PAST MEDICAL HISTORY: Significant for cataract extraction, knee surgery, tooth extraction, hypertension, hyperlipidemia. No history of diabetes. He has sleep apnea, uses BiPAP. CURRENT MEDICATIONS: Include albuterol inhaler, aspirin, Lipitor, lisinopril, Mobic, Protonix, Maxzide, Eliquis, flecainide. ALLERGIES: HE HAS PREVIOUS INTOLERANCE TO PENICILLIN. FAMILY HISTORY: Negative for heart disease. SOCIAL HISTORY: He is . He and his live here in [place]. 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 He quit smoking in 2013. Quit drinking alcohol at that time as well. REVIEW OF SYSTEMS: He is overweight, being 5 feet 7 inches, weighing 300 pounds. No history of stroke. He does have asthma. He has sleep apnea. No liver disease, kidney disease, cancer, psychiatric illness or chronic skin condition. Previous carotid Doppler study showed less than 50% [place] [address] CONSULTATION Name: SUZY ALMONTE Room: [address] IN ..#: [id number] Admission: 10/20/21 Attend Phys: Francheska Burns Discharge: Date of : 50 Report #: [id number] PHYSICAL EXAMINATION: GENERAL: Revealed an elderly obese male, lying in bed, appeared in no distress. VITAL SIGNS: His blood pressure was 110/70, his pulse 130. He was afebrile. HEENT: He was anicteric. Conjunctivae pink. Mucous membranes moist. NECK: Veins difficult to assess due to obesity. No carotid bruits. Neck is supple. CHEST: Clear to auscultation. CARDIAC: Regular, tachycardia. No significant murmur. ABDOMEN: Obese. EXTREMITIES: Had trace edema. Dorsalis pedis pulse 1+ bilaterally. SKIN: Cool and dry. NEUROLOGIC: Nonfocal. IMAGING DATA: ECG on admission last night showed atrial flutter with increased ventricular response rate. No significant ST or T-wave changes were noted. His x-rays last night, he had a portable chest x-ray that showed cardiomegaly, no vascular congestion, some atelectasis was noted. LABORATORY DATA: Creatinine 1.7. His high sensitivity troponin is 19. BNP 399. Hematocrit 37.9. His COVID antigen stat test was negative. IMPRESSION AND RECOMMENDATIONS: 1. Atrial flutter. Recent ARTHUR and cardioversion. The patient is on Eliquis. Recommend repeat cardiac conversion. I would then recommend switching from flecainide to amiodarone. I would continue Eliquis. 2. Chronic obstructive pulmonary disease. 3. Hyperlipidemia. The patient is on a statin drug. 4. Hypertension. I would hold his lisinopril, metoprolol at this time. Continue Maxzide. 5. Obesity. 6. Sleep apnea. The patient uses BiPAP. 7. Recent COVID-19. 8. Recent hip surgery. 9. Mild carotid stenosis. Asymptomatic. <ELECTRONICALLY SIGNED> By: Lele Leger MD, FACC 10/22/21 1332 0801 [id number] Leger MD, FACC /nt
--- NOTE | 2021-10-22 13:32 | CARD ---
[address] [address] CARDIAC CATH REPORT Name: SUZY ALMONTE Room: [address] IN M.R.#: [id number] Admission: 10/20/21 Attend Phys: Francheska Burns Discharge: Date of : 50 Report #: [id number] THIS REPORT FOR: cc: Miquel Hoff,Miquel Yepez,Lele Jackman MD [facility] ~ cc: Miquel Hoff DATE OF SERVICE: 10/21/2021 TITLE OF PROCEDURE: Direct current cardioversion of atrial flutter. INDICATIONS: Cardioversion was requested in this patient with history of atrial flutter. PROCEDURE: The patient was brought to the cardiac catheterization lab in a fasting state. Cardioversion patches were applied in anterior and posterior location. The patient had been on Eliquis at the time of the study. The patient was given moderate sedation by administering intravenous Versed and fentanyl in divided doses. Cardioversion was attempted by applying 100 joules of direct current energy in a synchronized fashion after the patient was sedated. After cardioversion, the patient was in a sinus rhythm. The patient tolerated the procedure well. IMPRESSION: Successful direct current cardioversion of atrial flutter to normal sinus rhythm by Dr. Eric Martin. <ELECTRONICALLY SIGNED> By: Lele Leger MD, FAC 10/22/21 1332 1728 2041Dmike Leger MD, FACC /nt
[2021-10-22 17:16] VITALS: BP 144/61
--- NOTE | 2021-10-22 18:39 | NUR ---
THIS RN AGREES WITH THE CHARTING COMPLETED BY CR BERNARD ON 10/22/21
[2021-10-22 20:00] VITALS: BP 148/78
[2021-10-23 02:26] VITALS: BP 104/60
[2021-10-23 04:00] VITALS: BP 130/57
--- NOTE | 2021-10-23 04:48 | NUR ---
PT SLEPT WELL DURING THIS SHIFT. PT UP AD ISAURO IN ROOM. PT IS ON 1LITER PER NASAL CANNULA. DENIES PAIN/NAUSEA. PT VPACED W/BBB ON DIGITAL MEDIA DIRECTOR. PT IS SALINE LOCKED. FREQUENTLY USED ITEMS AND CALL LIGHT WITHIN REACH. SIDERAILS UPX2. WILL CONTINUE TO MONITOR.
[2021-10-23 05:36] LABS: ABSOLUTE EOSINOPHILS 0.1 thou/uL (0.0-0.7); ABSOLUTE LYMPHOCYTES 1.4 thou/uL (0.8-5.3); ABSOLUTE MONOCYTES 0.4 thou/uL (0.0-1.2); ABSOLUTE NEUTROPHILS 2.5 thou/uL (1.6-8.1); BASOPHILS 0.5 %; EOSINOPHILS 2.7 %; HEMATOCRIT 40.1 % (42.0-52.0); HEMOGLOBIN 13.1 gm/dL (14.0-18.0); MCH 32.2 pg (26.0-34.0); MCHC 32.6 g/dL (28.0-37.0); MCV 98.6 fL (80.0-100.0); MONOCYTES 8.8 %; MPV 7.3 fl. (7.2-11.1); NUCLEATED RBCS 0 /100WBC; PLATELET COUNT* 190 thou/uL (150-400); RBC 4.07 mil/uL (4.50-6.00); WBC 4.4 thou/uL (4.0-11.0)
[2021-10-23 06:06] LABS: ALBUMIN 3.4 g/dL (3.4-5.0); CALCIUM 8.8 mg/dL (8.5-10.1); CREATININE 1.2 mg/dL (0.6-1.3); POTASSIUM 4.4 mmol/L (3.5-5.1); TOTAL BILIRUBIN 0.5 mg/dL (<0.1-1.0); TOTAL PROTEIN 7.1 g/dL (6.4-8.2)
[2021-10-23 09:09] VITALS: BP 131/62
--- NOTE | 2021-10-23 10:29 | EKG ---
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 : 1950 Requested By: Lele Leger Order Number: [id number] Reading MD: Lele Leger Measurements Intervals [place] Rate: 80 P: 38 UT: 211 QRS: 98 QRSD: 111 T: 41 QT: 405 QTc: 468 Interpretive Statements Sinus rhythm Atrial premature complexes Left posterior fascicular block Low voltage, precordial leads Abnormal R-wave progression, late transition Baseline wander in lead(s) V5 Compared to ECG 10/22/2021 04:00:50 no change Electronically Signed On 10-23-2021 10:29:20 PLANER OFF BEARER by Lele Leger [email or web address] <ELECTRONICALLY SIGNED> By: Lele Leger MD, FACC 10/23/21 1029 6 6 Lele Leger MD, FAC /EPI
--- NOTE | 2021-10-23 10:39 | NUR ---
PLAN FOR THE PT TO D/C HOME WITH HH. HOWEVER PT INFORMS THAT HE PLANS TO RETURN HOME AND RESUME HIS OUTPATIENT PT/OT THAT HAD BEEN PREVIOUSLY ARRANGED BY HIS ORTHOPEDIC HIP SX. CM INFORMED THAT PT TO CONTACT CM IF ANY ISSUES ARISE WITH THIS. PT IN AGREEMENT WITH PLAN. NO OTHER CM D/C PLANNING NEEDS ANTICIPATED. CM WILL REMAIN AVAILABLE TO ASSIST AND FOLLOW NEEDED.
[2021-10-23 11:09] VITALS: BP 131/68
[2021-10-23 13:55] VITALS: BP 131/68
--- NOTE | 2021-10-23 14:03 | NUR ---
ASSUMED PT CARE AT 0730. PT IS PLEASANTLY A&OX4. ASSESSMENT COMPLETED. MEDICATIONS ADMINISTERED ORDER. NEW ORDER TO DISCAHRGE PT TO HOME. DISCHARGE ORDERS REVIEWED WITH PT AND PT VCERBALIZES UNDERSTANDING. HERE TO TRANSPORT PT TO HOME VIA CAR AT APPROX. 1400. PT AND SPOUSE VERBALIZE UNDERSTANDING OF NEW AMIODARONE ORDER AND MEDICATIONS TO STOP TAKING INCLUDING ASPIRIN PER DR. SHAFFER.
== END 2021-10-23 14:08 | disposition home or self-care (01) | DRG 309 ==
LOC: M.ERS 20:14 → M.TBA-ER 21:47 → M.2W 21:47 → M.TBA-CV 21:47 → M.TBA-ER 21:47 → M.TBA-CV 10-21 11:24 → M.2W 10-21 18:02
PROVIDERS: Emergency Medicine; Internal Medicine; Internal Medicine Cardiovascular Disease; ADMIT Internal Medicine; ATTEND Internal Medicine
PROC: 5A2204Z Restoration of Cardiac Rhythm, Single (ICD-10-PCS; principal; 2021-10-21)
DX: I48.91 Unspecified atrial fibrillation (principal); Z68.41 Body mass index [BMI] 40.0-44.9, adult; N17.9 Acute kidney failure, unspecified; L03.116 Cellulitis of left lower limb; E66.9 Obesity, unspecified; Z20.822 Contact with and (suspected) exposure to COVID-19; Z88.0 Allergy status to penicillin; Z88.8 Allergy status to other drugs, medicaments and biological substances; I10 Essential (primary) hypertension; E78.5 Hyperlipidemia, unspecified; I48.92 Unspecified atrial flutter; J44.9 Chronic obstructive pulmonary disease, unspecified; M19.90 Unspecified osteoarthritis, unspecified site

== ENCOUNTER → 2021-11-05 | Outpatient (CLI) | payer MEDICARE, OTHER | LOC: M.PC 10:19 | PROVIDERS: ATTEND Anesthesiology Pain Medicine | DX: M54.12 Radiculopathy, cervical region (principal); M25.561 Pain in right knee; M54.50 Low back pain, unspecified; M54.2 Cervicalgia; M48.00 Spinal stenosis, site unspecified; I10 Essential (primary) hypertension; M17.12 Unilateral primary osteoarthritis, left knee; M79.18 Myalgia, other site; I48.91 Unspecified atrial fibrillation; L03.115 Cellulitis of right lower limb; G47.33 Obstructive sleep apnea (adult) (pediatric); Z88.0 Allergy status to penicillin; Z88.8 Allergy status to other drugs, medicaments and biological substances; Z79.82 Long term (current) use of aspirin; Z79.899 Other long term (current) drug therapy ==

== ENCOUNTER → 2021-11-21 | Outpatient (CLI) | payer MEDICARE, OTHER ==
[~2021-11-21] MED LIST changes: +AMIODARONE HCL400 MG PO; +LIPITOR 20 MG T20 M1 PO; +MELOXICAM15 MG PO; +OMEGA-3 FISH1200 MG PO; +PROTONIX 20 MG20 MG PO; +SINGULAIR 10 MG10 M1 PO
== END | disposition home or self-care (01) ==
LOC: M.PC 08:13
PROVIDERS: ATTEND Anesthesiology Pain Medicine
DX: M54.59 Other low back pain (principal); G89.29 Other chronic pain; M48.061 Spinal stenosis, lumbar region without neurogenic claudication; M43.16 Spondylolisthesis, lumbar region; M51.36 Other intervertebral disc degeneration, lumbar region; I10 Essential (primary) hypertension; M17.12 Unilateral primary osteoarthritis, left knee; I48.91 Unspecified atrial fibrillation; I48.92 Unspecified atrial flutter; G47.33 Obstructive sleep apnea (adult) (pediatric); Z20.822 Contact with and (suspected) exposure to COVID-19; Z98.890 Other specified postprocedural states; Z87.891 Personal history of nicotine dependence; Z79.899 Other long term (current) drug therapy; Z88.0 Allergy status to penicillin; Z88.8 Allergy status to other drugs, medicaments and biological substances; Z79.01 Long term (current) use of anticoagulants